=== PATIENT | male | born 1950 | race Caucasian/White ===

== ENCOUNTER 2020-06-17 09:17 | Inpatient (IN) | payer OTHER, MEDICARE ==
[2020-06-17 09:50] LABS: Absolute Lymphocytes (CBC) 1.1 K/uL (0.7-4.9); Basophils % 0.7 % (0-1.3); Hematocrit 34.6 % (39.6-49.0); Lymphocytes % 10.8 % (15.3-44.8); MPV 8.5 fL (7.6-11.3); RBC Red Blood Cell Count 3.38 M/uL (4.33-5.43)
[2020-06-17 09:51] LABS: Protime INR 1.1
[2020-06-17] MEDS ORDERED: NA CHLORIDE 0.9% 1,000 ML ONE ×2 (09:52→11:46)
[2020-06-17 10:11] LABS: ALT/SGPT 26 U/L (12-78); AST/SGOT 19 U/L (15-37); Albumin 2.9 g/dL (3.4-5.0); Alkaline Phosphatase 118 U/L (45-117); BUN Blood Urea Nitrogen 70 mg/dL (7-18); Bicarbonate 21 mmol/L (21-32); Bilirubin Direct 0.1 mg/dL (0-0.2); Bilirubin Total 0.4 mg/dL (0.2-1.0); Glucose Level 219 mg/dL (74-106); Lipase 19 U/L (73-393); Magnesium 2.5 mg/dL (1.8-2.4); NT PRO-BNP 1659 pg/mL (<125); Potassium 3.9 mmol/L (3.5-5.1); Protein, Total 6.1 g/dL (6.4-8.2); Sodium Level 136 mmol/L (136-145); Troponin (Emerg Dept Use Only) < 0.02 ng/mL (0.0-0.045)
[2020-06-17] MEDS ORDERED: FAMOTIDINE 20 MG/2 ML VIAL IV ONE (10:38)
[2020-06-17] MEDS ORDERED: HYDROCORTISONE SUC 100 MG INJ ONE (10:38)
[2020-06-17] MEDS ORDERED: CEFTRIAXONE/SWI 1gm 1 GM/10 ML SYR ONE (10:38)
[2020-06-17] MEDS ORDERED: DOPAMINE/D5W 400 MG/250 ML BAG IV ONE (10:39)
[2020-06-17] MEDS ORDERED: WATER FOR INJ,STERILE 10 ML ONE (10:41)
--- NOTE | 2020-06-17 11:25 | RAD REPORT ---
EXAM DESCRIPTION: CT - Head Brain Wo Cont - 06/17/2020 11:01 am CLINICAL HISTORY: Dizziness;Syncope Headache, drowsiness COMPARISON: No comparisons TECHNIQUE: All CT scans are performed using dose optimization technique as appropriate and may inclu de automated exposure control or mA/KV adjustment according to patient size. FINDINGS: No intracranial hemorrhage, hydrocephalus or extra-axial fluid collection.Area of gliosis is present in the left frontal lobe.No areas of brain edema or evidence of midline shift. Chronic opacification right sphenoid sinus. The paranasal sinuses and mastoids are otherwise clear. L eft-sided craniotomy changes are present in the temporal region. IMPRESSION: No acute intracranial abnormality.
--- NOTE | 2020-06-17 11:29 | RAD REPORT ---
EXAM DESCRIPTION: CT - Chest Abd Pelvis Wo Con - 06/17/2020 11:00 am CLINICAL HISTORY: Chest and abdomen pain. hypotensive,guaiac pos;Abdominal distention;Dyspnea COMPARISON: No comparisons TECHNIQUE: A limited noncontrast study is performed. All CT scans are performed using dose optimization technique as appropriate and may include automated exposure control or mA/KV adjustment according to patient size. FINDINGS: Atelectasis is present in both lung bases, greater on the left.Small area of atelectasis i s also present posterior left upper lobe.Trace left pleural effusion.No intrathoracic adenopathy. Rig ht sided subclavian vein stent. No aggressive liver lesion or biliary dilatation. Spleen appears absent. Postsurgical changes are pre sent involving pancreas. Both adrenal glands are normal. Multiple bilateral renal calculi and renal c ysts are present. No hydronephrosis. No bowel obstruction, free air, free fluid or abscess. Normal appendix. Moderate retained stool is pr esent throughout the colon. No pathologic lymphadenopathy in the abdomen or pelvis. Lower lumbar spondylosis is present with disc bulging. IMPRESSION: Areas of linear opacities are present in both lung bases and posterior left upper lobe p robably atelectasis. Small areas of infiltrate or aspiration can have a similar appearance. Postsurgical changes are seen involving the pancreas and spleen is surgically absent. Bilateral renal calculi are present without hydronephrosis. Moderate stool is present throughout the colon.
--- NOTE | 2020-06-17 11:44 | EDPHYS ---
Physician Documentation [facility] Name: Castillo German Age: 69 yrs Sex: Male : 1950 Arrival Date: 06/17/2020 Time: 09:[address] Private MD: ED Physician Arnol Bianchi HPI: 06/17 09:34 This 69 yrs old Male presents to ER via Unassigned with complaints of Syncope.jason 09:34 weak, syncope, unresponsive, hypotensive. The patient has experienced syncope, became jason unresponsive. Onset: The symptoms/episode began/occurred just prior to arrival. Duration: This was a single episode, that lasted 15 minute(s). Context: the episode(s) was witnessed, by family. Onset: The symptoms/episode began/occurred this morning. Associated injury: The patient did not suffer any apparent associated injury. Associated signs and symptoms: The patient has no apparent associated signs or symptoms. Severity of symptoms: At their worst the symptoms were moderate in the emergency department the symptoms have improved. Historical: - Allergies: : No Known Allergies; rb1 - Home Meds: :21 zolpidem 10 mg Oral tab 1 tab once daily [Active]; atorvastatin 10 mg oral tab 1 tab rb1 once daily [Active]; pantoprazole 40 mg oral TbEC 1 tab once daily [Active]; glimepiride 2 mg Oral tab 1 tab once daily [Active]; tramadol 50 mg Oral tab 1 tab every 4 hours [Active]; allopurinol 100 mg Oral tab 1 tab once daily [Active]; topiramate 200 mg oral CSpX 1 cap twice a day [Active]; calcitriol 0.25 mcg oral cap 1 cap once daily [Active]; sevelamer carbonate 800 mg oral tab 1 tab 4/meals 3/snack [Active]; midrodine 2.5 mg 1 tab three times a day [Active]; Vitamin D3 1,000 unit oral tab daily [Active]; Vitamin B-12 1,000 mcg Oral tab daily [Active]; Vitamin C 1,000 mg Oral tab daily [Active]; stool softner [Active]; - PMHx: 09:21 Dialysis M-W-F; rb1 09:21 Brain tumor; Pancreatic cancer; Prostate; Melonoma; kidney stones; shingles; rb1 - PSHx: 09:21 knee replacement; whipple; fistula; rb1 - Immunization history:: Adult Immunizations. - Family history:: not pertinent. - Social history:: Smoking status: Patient denies any tobacco usage or history of. ROS: 09:34 Constitutional: Negative for fever, chills, and weight loss, Eyes: Negative for injury, jason pain, redness, and discharge, ENT: Negative for injury, pain, and discharge, Neck: Negative for injury, pain, and swelling, Cardiovascular: Negative for chest pain, palpitations, and edema, Respiratory: Negative for shortness of breath, cough, wheezing, and pleuritic chest pain, Abdomen/GI: Negative for abdominal pain, nausea, vomiting, diarrhea, and constipation, Back: Negative for injury and pain, : Negative for injury, bleeding, discharge, and swelling, MS/Extremity: Negative for injury and deformity, Skin: Negative for injury, rash, and discoloration, Psych: Negative for depression, anxiety, suicide ideation, homicidal ideation, and hallucinations, Allergy/Immunology: Negative for hives, rash, and allergies, Endocrine: Negative for neck swelling, polydipsia, polyuria, polyphagia, and marked weight changes. 09:34 Neuro: Positive for syncope, weakness. Exam: 09:37 Constitutional: This is a well developed, well nourished patient who is awake, alert, jason and in no acute distress. Head/Face: Normocephalic, atraumatic. Eyes: Pupils equal round and reactive to light, extra-ocular motions intact. Lids and lashes normal. Conjunctiva and sclera are non-icteric and not injected. Cornea within normal limits. Periorbital areas with no swelling, redness, or edema. ENT: Nares patent. No nasal discharge, no septal abnormalities noted. Tympanic membranes are normal and external auditory canals are clear. Oropharynx with no redness, swelling, or masses, exudates, or evidence of obstruction, uvula midline. Mucous membranes moist. Neck: Trachea midline, no thyromegaly or masses palpated, and no cervical lymphadenopathy. Supple, full range of motion without nuchal rigidity, or vertebral point tenderness. No Meningismus. Chest/axilla: Normal chest wall appearance and motion. Nontender with no deformity. No lesions are appreciated. Respiratory: Lungs have equal breath sounds bilaterally, clear to auscultation and percussion. No rales, rhonchi or wheezes noted. No increased work of breathing, no retractions or nasal flaring. Abdomen/GI: Soft, non-tender, with normal bowel sounds. No distension or tympany. No guarding or rebound. No evidence of tenderness throughout. Back: No spinal tenderness. No costovertebral tenderness. Full range of motion. Male : Normal genitalia with no discharge or lesions. Skin: Warm, dry with normal turgor. Normal color with no rashes, no lesions, and no evidence of cellulitis. MS/ Extremity: Pulses equal, no cyanosis. Neurovascular intact. Full, normal range of motion. Psych: Awake, alert, with orientation to person, place and time. Behavior, mood, and affect are within normal limits. 09:37 Cardiovascular: Rate: bradycardic, Rhythm: regular, Pulses: Pulses are 2+ in bilateral radial, brachial, femoral, popliteal, posterior tibial and and dorsalis pedis arteries.. Heart sounds: normal, Edema: is not appreciated, JVD: is noted bilaterally, to 2 cm. 09:37 Musculoskeletal/extremity: Extremities: all appear grossly normal, with no appreciated pain with palpation, ROM: no acute changes, Circulation is intact in all extremities. Sensation intact. Compartment Syndrome exam of affected extremity: is normal. DVT Exam: No signs of deep vein thrombosis. no pain, no swelling, no tenderness, negative Homans' sign noted on exam, no appreciated bluish discoloration, no erythema, no increased warmth. 09:37 Neuro: Orientation: is normal, appropriate for stated age, no acute changes, Mentation: is normal, appropriate for stated age, no acute changes, slow to respond, Memory: is normal, appropriate for stated age, no acute changes, Cranial nerves: grossly normal, is grossly normal based on the patient's age, no acute changes, Cerebellar function: is grossly normal, is grossly normal based on the patient's age, no acute changes, Motor: is normal, is grossly normal based on the patient's age, no acute changes, moves all fours, Sensation: is normal, no obvious gross deficits, appropriate no acute changes, Gait: not tested. Babinski testing is normal, seizure activity, is not displayed by the patient. 10:14 Abdomen/GI: Inspection: distension, Bowel sounds: normal, Palpation: abdomen is soft jason and non-tender, soft, nontender, Rectal exam: rectal tone normal, Stool: guaiac positive, small bright red blood present, Liver: no appreciated palpable abnormalities, Hernia: not appreciated. 10:16 ECG was reviewed by the Attending Physician. [facility] Vital Signs: 09:21 BP 71 / 45; Pulse 109; Resp 15; Temp 96.6(TE); Pulse Ox 100% on R/A; Weight 89.36 kg; rb1 Height 5 ft. 11 in. (180.34 cm); Pain 0/10; 10:20 BP 76 / 48; Pulse 55; Resp 13; Pulse Ox 99% ; Pain 0/10; rb1 10:59 BP 68 / 42; Pulse 59; Resp 16; Pulse Ox 97% on 4 lpm NC; Pain 0/10; rb1 11:03 BP 71 / 46; Pulse 61; Resp 13; Pulse Ox 94% on 4 lpm NC; Pain 0/10; rb1 11:18 BP 77 / 45; Pulse 66; Resp 12; Pulse Ox 96% on 4 lpm NC; Pain 0/10; rb1 12:00 BP 97 / 52; Pulse 71; Resp 13; Pulse Ox 99% on 4 lpm NC; Pain 0/10; rb1 12:18 BP 97 / 54; Pulse 70; Resp 12; Pulse Ox 96% on 4 lpm NC; Pain 0/10; rb1 13:00 BP 99 / 55; Pulse 74; Resp 14; Pulse Ox 100% on 4 lpm NC; rb1 13:25 BP 64 / 54; Pulse 71; Resp 17; Pulse Ox 99% on 4 lpm NC; rb1 13:55 BP 102 / 60; Pulse 80; Resp 19 S; Pulse Ox 98% on 4 lpm NC; ca1 14:08 ca1 14:35 BP 106 / 62; Pulse 72; Resp 15 S; Pulse Ox 100% on 2 lpm NC; ca1 14:55 BP 110 / 61; Pulse 73; Resp 15; Pulse Ox 100% on 2 lpm NC; ca1 09:21 Body Mass Index 27.48 (89.36 kg, 180.34 cm) rb1 10:59 Dopamine increased to 10 mcg/kg/min rb1 11:03 Dopamine increased to 15 mcg/kg/min rb1 11:18 Dopamine increased to 20 mcg/kg/min rb1 12:00 Dopamine at 20 mcg/kg/min rb1 13:00 Dopamine decreased to 15 mcg/kg/min per verbal order from Dr. Neely. 100% verbal rb1 read back. 13:25 Dopamine increased to 20 mcg/kg/min due to low BP. rb1 13:55 Dopamine at 20mcg/kg/min ca1 14:08 RT decreased O2 to 2LP, sats at 100% ca1 14:35 Dopamine at 20mcg/kg/min ca1 14:55 Dopamine \T\ 20 mcg/kg/min ca1 Procedures: 10:15 Central Line: the site was prepped with Betadine, in sterile fashion, a triple lumen jason catheter was inserted, in the right femoral vein, in 1 attempts. placement was verified, by blood return, the site was dressed with using sterile technique, the patient tolerated the procedure, well. MDM: 09:22 Patient medically screened. jason 09:36 Differential Diagnosis altered mental status, sepsis. Differential Diagnosis: cardiac jason arrhythmia, cerebrovascular accident, drug effect, GI bleed. Data reviewed: vital signs, nurses notes, lab test result(s), EKG, radiologic studies, CT scan, plain films. Data interpreted: cafeteria monitor: rate is 50 beats/min, Pulse oximetry: on room air is 96 %. Test interpretation: by ED physician or midlevel provider: ECG, plain radiologic studies. Counseling: I had a detailed discussion with the patient and/or guardian regarding: the historical points, exam findings, and any diagnostic results supporting the discharge/admit diagnosis, the presence of at least one elevated blood pressure reading (>120/80) during this emergency department visit, lab results, radiology results. 06/17 09:33 Order name: Basic Metabolic Panel; Complete Time: 11:06 [facility] 06/17 09:33 Order name: CBC with Diff; Complete Time: 10: [facility] 06/17 09:33 Order name: LFT's; Complete Time: 11: [facility] 06/17 09:33 Order name: Magnesium; Complete Time: 11:06 [facility] 06/17 09:33 Order name: NT PRO-BNP; Complete Time: 11:06 jason 06/17 09:33 Order name: PT-INR; Complete Time: 10:06 [facility] 06/17 09:33 Order name: Troponin (emerg Dept Use Only); Complete Time: 11:06 [facility] 06/17 09:33 Order name: Lipase; Complete Time: 11: [facility] 06/17 09:33 Order name: Blood Culture Adult (2) [facility] 06/17 09:33 Order name: Procalcitonin; Complete Time: 11:06 [facility] 06/17 09:33 Order name: Lactate; Complete Time: 11:06 [facility] 06/17 09:33 Order name: Urine Culture [facility] 06/17 09:40 Order name: D-Dimer; Complete Time: 10:06 [facility] 06/17 10:06 Order name: Ptt, Activated; Complete Time: 11:06 [facility] 06/17 09:33 Order name: XRAY Chest (1 view) [facility] 06/17 09:40 Order name: CT Head Brain wo Cont; Complete Time: 11:32 [facility] 06/17 10:11 Order name: Type And Screen; Complete Time: 11:06 [facility] 06/17 10:14 Order name: CT Chest Abdomen Pelvis W/O Contrast; Complete Time: 11:32 [facility] 06/17 10:26 Order name: Glucose, Ancillary Testing; Complete Time: 11:06 [facility] 06/17 10:59 Order name: ABO/RH no charge; Complete Time: 11:06 [facility] 06/17 11:43 Order name: INCENTIVE SPIROMETRY [facility] 06/17 14:10 Order name: Urine Dipstick--Ancillary (enter results) tn 06/17 14:53 Order name: Lactate Sepsis 2 HR Follow-up [facility] 06/17 14:53 Order name: Urine Dipstick-Ancillary [facility] 06/17 09:33 Order name: EKG; Complete Time: 09:34 [facility] 06/17 09:33 Order name: Cardiac monitoring; Complete Time: 09:42 [facility] 06/17 09:33 Order name: EKG - Nurse/Tech; Complete Time: 09:42 [facility] 06/17 09:33 Order name: IV Saline Lock; Complete Time: 10:26 [facility] 06/17 09:33 Order name: Labs collected and sent; Complete Time: 10:26 [facility] 06/17 09:33 Order name: O2 Per Protocol; Complete Time: 10:26 [facility] 06/17 09:33 Order name: O2 Sat Monitoring; Complete Time: 11:11 [facility] 06/17 09:33 Order name: Central Line Kit; Complete Time: 11:04 [facility] 06/17 09:33 Order name: Urine Dipstick-Ancillary (obtain specimen); Complete Time: 14:10 [facility] 06/17 13:14 Order name: CONS Physician Consult EDMS EC:16 Rate is 58 beats/min. Rhythm is regular. QRS [place] is Normal. OH interval is normal. QRS jason interval is normal. QT interval is prolonged at 510 msec. No Q waves. T waves are Normal. No ST changes noted. Clinical impression: Sinus bradycardia. Interpreted by me. Reviewed by me. Administered Medications: 09:45 Drug: NS 0.9% 1000 ml Route: IV; Rate: 125 ml/hr; Site: left antecubital; rb1 10:35 Drug: Dopamine drip 5 mcg/kg/min - (DOPamine 400 mg, D5W 250 ml) Route: IV; Rate: rb1 calculated rate; Site: right femoral; 10:59 Follow up: Rate change 10 calculated rate rb1 11:03 Follow up: Rate change 15 calculated rate rb1 11:18 Follow up: Rate change 20 calculated rate rb1 13:00 Follow up: Rate change 15 calculated rate rb1 13:25 Follow up: Rate change 20 calculated rate rb1 14:50 Follow up: Response: No adverse reaction; IV Status: Completed infusion ca1 10:40 Drug: Solu-CORTEF 100 mg Route: IVP; Site: right femoral; rb1 10:55 Follow up: Response: No adverse reaction rb1 10:40 Drug: Pepcid 20 mg Route: IVP; Site: right femoral; rb1 10:55 Follow up: Response: No adverse reaction rb1 11:05 Drug: Rocephin 1 grams Route: IV; Rate: per protocol; Site: right femoral; rb1 11:20 Follow up: Response: No adverse reaction; IV Status: Completed infusion rb1 11:36 Drug: NS 0.9% 500 ml Route: IV; Rate: bolus; Site: right femoral; rb1 12:05 Follow up: IV Status: Completed infusion rb1 13:10 Drug: vancoMYCIN 1 grams Route: IVPB; Infused Over: 2 hrs; Site: left antecubital; ca1 14:58 Follow up: Response: No adverse reaction; IV Status: Completed infusion ca1 Point of Care Testing: Blood Glucose: 10:01 Blood Glucose: 185 mg/dL; rb1 Ranges: Critical Glucose Levels:Adult <50 mg/dl or >400 mg/dl <40 mg/dl or >180 mg/dl Disposition: 06/17/20 12:31 Hospitalization ordered by Paul Simms for Inpatient Admission. Preliminary diagnosis are Syncope and collapse, Gastrointestinal hemorrhage, unspecified, Hypotension, End stage renal disease - ON HD M,W,FRI. - Bed requested for Intensive Care Unit. - Status is Inpatient Admission. ca1 - Condition is Fair. - Problem is new. - Symptoms have improved. Critical care time excluding procedures: 10:20 Critical care time: Bedside Care: 35 minutes, Consultation: 10 minutes. Total time: 45 ajson minutes Signatures: Dispatcher [employer] EDGema Jo RN RN dw Anderson, Corey, MD MD cha Barber, Rebecca, RN RN [place] Naty Bridges RN RN ca1 Corrections: (The following items were deleted from the chart) 11:44 11:43 06/17/2020 11:43 Transfer ordered to [facility]. Diagnosis is jason Syncope and collapse; Gastrointestinal hemorrhage, unspecified; Hypotension; Weakness. Reason for transfer: Higher level of care. Accepting physician is [facility] [place] [place] [facility]. Condition is Serious. Problem is new. Symptoms have improved. [facility] 12:29 11:44 06/17/2020 11:43 Transfer ordered to [facility]. Diagnosis is jason Syncope and collapse; Gastrointestinal hemorrhage, unspecified; Hypotension; Weakness; End stage renal disease - on HD M,W,FRI. Reason for transfer: Higher level of care. Accepting physician is [facility] [place] [place] [facility]. Condition is Serious. Problem is new. Symptoms have improved. jason 14:24 12:31 Hospitalization Ordered by Paul Simms MD for Inpatient Admission. Preliminary dw diagnosis is Syncope and collapse; Gastrointestinal hemorrhage, unspecified; Hypotension; End stage renal disease - ON HD M,W,FRI. Bed requested for Intensive Care Unit. Status is Inpatient Admission. Condition is Fair. Problem is new. Symptoms have improved. jason 15:41 14:24 06/17/2020 12:31 Hospitalization Ordered by Paul Simms MD for Inpatient ca1 Admission. Preliminary diagnosis is Syncope and collapse; Gastrointestinal hemorrhage, unspecified; Hypotension; End stage renal disease - ON HD M,W,FRI. Bed requested for Intensive Care Unit. Status is Inpatient Admission. Condition is Fair. Problem is new. Symptoms have improved. dw
--- NOTE | 2020-06-17 11:44 | ER ---
Nurse's Notes [facility] Name: Castillo German Age: 69 yrs Sex: Male : 1950 Arrival Date: 06/17/2020 Time: 09:[address] Private MD: Diagnosis: Syncope and collapse;Gastrointestinal hemorrhage, unspecified;Hypotension;End stage renal disease-ON HD , Presentation: 06/17 09:21 Chief complaint: EMS states: Pt. recently moved here from [place], was supposed to have rb1 dialysis on Thursday but missed it due to driving to [place]. Went for a walk and became AMS, was sat down, then he had a syncope episode and became unresponsive. EMS reports HR 50's, BP 60's/40's, they administered Atropine, NS 500 ml bolus, and Paced him for 1 minute. Upon arrival to the ED the pt. is A \T\ O x 4 but lethargic. Coronavirus screen: Proceed with normal triage. Ebola Screen: Patient negative for fever greater than or equal to 101.5 degrees Fahrenheit, and additional compatible Ebola Virus Disease symptoms. Risk Assessment: Do you want to hurt yourself or someone else? Patient reports no desire to harm self or others. Onset of symptoms was June 17, 2020 at 08:35. 09:21 Method Of Arrival: EMS: [facility] rb1 09:21 Acuity: SULLY 3 rb1 09:21 Initial Sepsis Screen: Does the patient meet any 2 criteria? Temp <36.0*C (96.8*F)) or rb1 > 38.3*C (100.9*F). Systolic BP < 90 mmHg. HR > 90 bpm. Yes Does the patient have a suspected source of infection? Yes: Other: syncope. Triage Assessment: 09:21 General: Appears in no apparent distress. Behavior is calm, cooperative. Pain: Denies rb1 pain. Neuro: Level of Consciousness is obeys commands, lethargic, Oriented to person, place, time, situation, Reports a syncopal episode. Cardiovascular: Capillary refill < 3 seconds. Respiratory: Airway is patent Respiratory effort is even, unlabored, Respiratory pattern is regular, symmetrical. GI: No signs and/or symptoms were reported involving the gastrointestinal system. : Reports Dialysis on , but missed it this past Thursday due to driving here from [place]. Is scheduled for dialysis on Thursday. Derm: Skin is pink, warm \T\ dry. Musculoskeletal: Range of motion: intact in all extremities. Historical: - Allergies: : No Known Allergies; rb1 - Home Meds: : zolpidem 10 mg Oral tab 1 tab once daily [Active]; atorvastatin 10 mg oral tab 1 tab rb1 once daily [Active]; pantoprazole 40 mg oral TbEC 1 tab once daily [Active]; glimepiride 2 mg Oral tab 1 tab once daily [Active]; tramadol 50 mg Oral tab 1 tab every 4 hours [Active]; allopurinol 100 mg Oral tab 1 tab once daily [Active]; topiramate 200 mg oral CSpX 1 cap twice a day [Active]; calcitriol 0.25 mcg oral cap 1 cap once daily [Active]; sevelamer carbonate 800 mg oral tab 1 tab 4/meals 3/snack [Active]; midrodine 2.5 mg 1 tab three times a day [Active]; Vitamin D3 1,000 unit oral tab daily [Active]; Vitamin B-12 1,000 mcg Oral tab daily [Active]; Vitamin C 1,000 mg Oral tab daily [Active]; stool softner [Active]; - PMHx: : Dialysis M-W-F; rb1 : Brain tumor; Pancreatic cancer; Prostate; Melonoma; kidney stones; shingles; rb1 - PSHx: : knee replacement; whipple; fistula; rb1 - Immunization history:: Adult Immunizations. - Family history:: not pertinent. - Social history:: Smoking status: Patient denies any tobacco usage or history of. Screenin:21 Abuse screen: Denies threats or abuse. Nutritional screening: No deficits noted. rb1 Tuberculosis screening: No symptoms or risk factors identified. Fall Risk No fall in past 12 months (0 pts). No secondary diagnosis (0 pts). IV access (20 points). Ambulatory Aid- None/Bed Rest/Nurse Assist (0 pts). Gait- Normal/Bed Rest/Wheelchair (0 pts) Mental Status- Oriented to own ability (0 pts). Total Felix Fall Scale indicates No Risk (0-24 pts). Assessment: General: See triage assessment. rb1 10:20 Reassessment: Patient appears in no apparent distress at this time. No changes from rb1 previously documented assessment. 11:20 Reassessment: Patient appears in no apparent distress at this time. Patient denies pain rb1 at this time. 12:20 Reassessment: Patient appears in no apparent distress at this time. Pt. is resting with rb1 eyes closed, respirations even, unlabored. 13:00 Reassessment: Received verbal order from Dr. Neely to wean the pt. off the Dopamine, rb1 keeping the MAP at 60. 100% verbal read back. 13:57 Reassessment: Patient appears in no apparent distress at this time. Patient and/or ca1 family updated on plan of care and expected duration. Pain level reassessed. Patient is alert, oriented x 3, equal unlabored respirations, skin warm/dry/pink. Neuro: Level of Consciousness is awake, alert, obeys commands, Oriented to person, place, time, situation. Cardiovascular: Heart tones S1 S2 present Capillary refill < 3 seconds Patient's skin is warm and dry. Rhythm is sinus rhythm. 14:55 Reassessment: Patient appears in no apparent distress at this time. Patient and/or ca1 family updated on plan of care and expected duration. Pain level reassessed. Patient is alert, oriented x 3, equal unlabored respirations, skin warm/dry/pink. Vital Signs: 09:21 BP 71 / 45; Pulse 109; Resp 15; Temp 96.6(TE); Pulse Ox 100% on R/A; Weight 89.36 kg; rb1 Height 5 ft. 11 in. (180.34 cm); Pain 0/10; 10:20 BP 76 / 48; Pulse 55; Resp 13; Pulse Ox 99% ; Pain 0/10; rb1 10:59 BP 68 / 42; Pulse 59; Resp 16; Pulse Ox 97% on 4 lpm NC; Pain 0/10; rb1 11:03 BP 71 / 46; Pulse 61; Resp 13; Pulse Ox 94% on 4 lpm NC; Pain 0/10; rb1 11:18 BP 77 / 45; Pulse 66; Resp 12; Pulse Ox 96% on 4 lpm NC; Pain 0/10; rb1 12:00 BP 97 / 52; Pulse 71; Resp 13; Pulse Ox 99% on 4 lpm NC; Pain 0/10; rb1 12:18 BP 97 / 54; Pulse 70; Resp 12; Pulse Ox 96% on 4 lpm NC; Pain 0/10; rb1 13:00 BP 99 / 55; Pulse 74; Resp 14; Pulse Ox 100% on 4 lpm NC; rb1 13:25 BP 64 / 54; Pulse 71; Resp 17; Pulse Ox 99% on 4 lpm NC; rb1 13:55 BP 102 / 60; Pulse 80; Resp 19 S; Pulse Ox 98% on 4 lpm NC; ca1 14:08 ca1 14:35 BP 106 / 62; Pulse 72; Resp 15 S; Pulse Ox 100% on 2 lpm NC; ca1 14:55 BP 110 / 61; Pulse 73; Resp 15; Pulse Ox 100% on 2 lpm NC; ca1 09:21 Body Mass Index 27.48 (89.36 kg, 180.34 cm) rb1 10:59 Dopamine increased to 10 mcg/kg/min rb1 11:03 Dopamine increased to 15 mcg/kg/min rb1 11:18 Dopamine increased to 20 mcg/kg/min rb1 12:00 Dopamine at 20 mcg/kg/min rb1 13:00 Dopamine decreased to 15 mcg/kg/min per verbal order from Dr. Neely. 100% verbal rb1 read back. 13:25 Dopamine increased to 20 mcg/kg/min due to low BP. rb1 13:55 Dopamine at 20mcg/kg/min ca1 14:08 RT decreased O2 to 2LP, sats at 100% ca1 14:35 Dopamine at 20mcg/kg/min ca1 14:55 Dopamine \T\ 20 mcg/kg/min ca1 ED Course: 09:21 Patient arrived in ED. ss 09:21 Arm band placed on right wrist. rb1 09:21 Patient has correct armband on for positive identification. Placed in gown. Bed in low rb1 position. Call light in reach. Side rails up X2. secured entrance monitor on. Pulse ox on. NIBP on. Warm blanket given. 09:21 Maintain EMS IV. Dressing intact. Good blood return noted. Site clean \T\ dry. Gauge \T\ rb 1 site: 20 G L AC. 09:22 Arnol Bianchi MD is Attending Physician. [facility] 09:33 Bella Baird, RN is Primary Nurse. rb1 10:26 XRAY Chest (1 view) In Process Unspecified. EDMS 11:00 CT Chest Abdomen Pelvis W/O Contrast In Process Unspecified. EDMS 11:01 CT Head Brain wo Cont In Process Unspecified. EDMS 11:39 Triage completed. rb1 12:30 Paul Simms MD is Hospitalizing Provider. [facility] 13:00 Report given to WENDY Alfonso. rb1 14:09 Straight cath inserted, using sterile technique, 16 Fr. Specimen obtained. Returned ca1 clear yellow urine. Patient tolerated well. Urine sent to lab. 14:22 Repeat lab(s) drawn. by wi, sent to lab. ca1 14:58 Patient admitted, IV remains in place. ca1 Administered Medications: 09:45 Drug: NS 0.9% 1000 ml Route: IV; Rate: 125 ml/hr; Site: left antecubital; rb1 10:35 Drug: Dopamine drip 5 mcg/kg/min - (DOPamine 400 mg, D5W 250 ml) Route: IV; Rate: rb1 calculated rate; Site: right femoral; 10:59 Follow up: Rate change 10 calculated rate rb1 11:03 Follow up: Rate change 15 calculated rate rb1 11:18 Follow up: Rate change 20 calculated rate rb1 13:00 Follow up: Rate change 15 calculated rate rb1 13:25 Follow up: Rate change 20 calculated rate rb1 14:50 Follow up: Response: No adverse reaction; IV Status: Completed infusion ca1 10:40 Drug: Solu-CORTEF 100 mg Route: IVP; Site: right femoral; rb1 10:55 Follow up: Response: No adverse reaction rb1 10:40 Drug: Pepcid 20 mg Route: IVP; Site: right femoral; rb1 10:55 Follow up: Response: No adverse reaction rb1 11:05 Drug: Rocephin 1 grams Route: IV; Rate: per protocol; Site: right femoral; rb1 11:20 Follow up: Response: No adverse reaction; IV Status: Completed infusion rb1 11:36 Drug: NS 0.9% 500 ml Route: IV; Rate: bolus; Site: right femoral; rb1 12:05 Follow up: IV Status: Completed infusion rb1 13:10 Drug: vancoMYCIN 1 grams Route: IVPB; Infused Over: 2 hrs; Site: left antecubital; ca1 14:58 Follow up: Response: No adverse reaction; IV Status: Completed infusion ca1 Point of Care Testing: Blood Glucose: 10:01 Blood Glucose: 185 mg/dL; rb1 Ranges: Output: 15:01 Urine: 30ml (Straight Cath); Total: 30ml. ca1 Outcome: 11:43 ER care complete, transfer ordered by . jason 12:31 Decision to Hospitalize by Provider. [facility] 14:59 Admitted to ICU accompanied by nurse, accompanied by tech, via stretcher, room 3, with ca1 oxygen, on monitor, with chart, Report called to WENDY Monroy 14:59 Condition: stable 14:59 Instructed on the need for admit. 15:41 Patient left the ED. ca1 Signatures: Dispatcher [employer] EDArnol Lord MD MD cha Smirch, Shelby, RN RN Bella Baird, WENDY RN rb1 Naty Bridges RN RN ca1 Corrections: (The following items were deleted from the chart) 12:43 10:59 BP 68 / 42; Pulse 59bpm; Resp 16bpm; Pulse Ox 97%; Pain 0/10; Dopamine increased rb1 to 10 mcg/kg/min; rb1
[2020-06-17] MEDS ORDERED: VANCOMYCIN/NS 1 gm 1 GM/250 ML BAG IVPB ONE (13:00)
[2020-06-17] MEDS ORDERED: ACETAMINOPHEN 500 MG TAB PO PRN (13:15)
--- NOTE | 2020-06-17 13:32 | P.HP ---
Certification for Inpatient With expected LOS: >2 Midnights Patient will require the following post-hospital care: None Practitioner: I am a practitioner with admitting privileges, knowledge of patient current condition, hospital course, and medical plan of care. Services: Services provided to patient in accordance with Admission requirements found in Title 42 Section 412.3 of the Code of Federal Regulations <Jorge Alberto Alcocer - Last Filed: 06/17/20 13:27> Patient History Date of Service: 06/17/20 Primary Care Provider: None Reason for admission: Syncope with hypotension History of Present Illness: 69-year-old male with a past medical history of end-stage renal disease on dialysis Thursday, history of pancreatic cancer and prostate cancer but completed treatment, type 2 diabetes mellitus, chronic hypotension who was brought to the emergency room via EMS with complaints of syncope and hypotension. Patient just relocated from [place], [place] yesterday to live with his son here in [facility]. Patient was walking with his son when he had a syncopal episode and passed out. EMS was called. On arrival EMS bolus the patient 500 mL and paced the patient for less than 1 min. On arrival to the emergency room patient was alert and oriented x3 but slightly lethargic. Patient missed his dialysis on Thursday due to relocating from [place] to here. States he has dialysis set up for Thursday. Patient has a history of chronic hypertension and takes midodrine 2.5 mg t.i.d. On arrival to the ED patient's blood pressure was noted to be low. Initial blood pressure was 71/45 with a pulse rate of 105. Patient had a central line placed and was started on dopamine which improved patient's blood pressure. Last reading blood pressure was 97/52 with a map of 66. Patient was also bolused 1 L IV fluids in the ED. Blood work done in the ED shows a creatinine level of 15 consistent with missing his dialysis last Thursday, the D-dimer of 529 and a lactic acid of 2.5 with a repeat pending. Patient states he is feeling better. He just arrived on Thursday to his son's house. 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 Denies any prior cardiac history. Patient will be admitted to the ICU for further evaluation. Home medications list reviewed: Yes - Past Medical/Surgical History Diabetic: Yes -: Pancreatic cancer- completed treatment -: Prostate cancer- completed treatment -: Benign brain tumor -: Diabetes mellitus -: History of chronic Hypotension -: End-stage renal disease on dialysis Thursday -: Melanoma -: Removal of melanoma tumor -: Removal of benign brain tumor -: Av graft for dialysis 2 years ago Psychosocial/ Personal History: Lives with son. Relocated here from [place] this week. . - Family History Family History: Reviewed- Non-Contributory - Social History Smoking Status: Never smoker Alcohol use: No CD- Drugs: No Caffeine use: No Place of Residence: Home <Jorge Alberto Alcocer - Last Filed: 06/17/20 13:27> Date of Service: 06/17/20 <Alex Neely - Last Filed: 06/17/20 14:23> Review of Systems General: As per HPI Eyes: Unremarkable ENT: Unremarkable Respiratory: Unremarkable Cardiovascular: Light Headedness Gastrointestinal: Unremarkable Genitourinary: Unremarkable Musculoskeletal: Unremarkable Integumentary: Unremarkable Neurological: Weakness <Jorge Alberto Alcocer - Last Filed: 06/17/20 13:27> Physical Examination - Vital Signs Temperature: 96.6 F Blood Pressure: 71/45 Pulse: 109 Respirations: 15 Pulse Ox (%): 100 (2L NC) - Physical Exam General: Alert, In no apparent distress, Oriented x3 HEENT: Atraumatic, Normocephalic, PERRLA Neck: Supple, Other (Trachea midline) Respiratory: Clear to auscultation bilaterally, Normal air movement Cardiovascular: No edema, Normal pulses, Regular rate/rhythm Capillary refill: <2 Seconds Gastrointestinal: Normal bowel sounds, Soft and benign, Non-distended Musculoskeletal: No swelling, No contractures, No erythema Integumentary: No rashes, No breakdown, No significant lesion, No ten derness/swelling Neurological: Normal speech, Normal strength at 5/5 x4 extr, Normal tone, Sensation intact Other Physical/Emotional Findings: Right arm AV graft for dialysis - Studies Laboratory Data (last 24 hrs) 06/17/20 10:20: APTT 24.3 06/17/20 09:33: PT 12.9 H, INR 1.10 06/17/20 09:33: WBC 9.8, Hgb 11.8 L, Hct 34.6 L, Plt Count 268 06/17/20 09:33: Sodium 136, Potassium 3.9, BUN 70 H, Creatinine 15.00 H*, Glucose 219 H, Magnesium 2.5 H, Total Bilirubin 0.4, AST 19, ALT 26, Alkaline Phosphatase 118 H, Lipase 19 L <Jorge Alberto Alcocer - Last Filed: 06/17/20 13:27> - Studies Laboratory Data (last 24 hrs) 06/17/20 10:20: APTT 24.3 06/17/20 09:33: PT 12.9 H, INR 1.10 06/17/20 09:33: WBC 9.8, Hgb 11.8 L, Hct 34.6 L, Plt Count 268 06/17/20 09:33: Sodium 136, Potassium 3.9, BUN 70 H, Creatinine 15.00 H*, Glucose 219 H, Magnesium 2.5 H, Total Bilirubin 0.4, AST 19, ALT 26, Alkaline Phosphatase 118 H, Lipase 19 L <Alex Neely - Last Filed: 06/17/20 14:23> Assessment and Plan - Plan Impression: Syncope complicated by a history of chronic hypotension: Type 2 diabetes mellitus: End-stage renal disease on dialysis Thursday and Thursday: History of pancreatic cancer, prostate cancer, melanoma removed and craniotomy to remove a benign brain tumor: Plan: Syncope complicated by a history of chronic hypotension: Patient has chronic hypotension and takes midodrine 2.5 mg t.i.d. in emergency room he was hypotensive with an initial blood pressure of 71/45 that is improved to 97/52 after central line placement and starting patient on a dopamine drip. Patient will be placed in the ICU and switched to a Levophed drip. Will resume midodrine as above. Will order echocardiogram and carotid Doppler. CT of the head with FINDINGS: No intracranial hemorrhage, hydrocephalus or extra-axial fluid collection.Area of gliosis is present in the left frontal lobe.No areas of brain edema or evidence of midline shift. Chronic opacification right sphenoid sinus. The paranasal sinuses and mastoids are otherwise clear. Left-sided craniotomy changes are present in the temporal region.IMPRESSION: No acute intracranial abnormality. CT chest abdomen pelvis with findings of areas of linear opacities are present in both lung bases and posterior left upper lobe probably atelectasis. Small areas of infiltrate or aspiration can have a similar appearance. Postsurgical changes are seen involving the pancreas and spleen is surgically absent. Bilateral renal calculi are present without hydronephrosis. Moderate stool is present throughout the colon. Will monitor vitals and adjust medications accordingly. Patient is alert and oriented x3. Will order ADA diet. Type 2 diabetes mellitus: Will order sliding scale insulin, Accu-Cheks a.c. HS. Will monitor blood glucose. End-stage renal disease on dialysis Thursday, Thursday and Thursday: Will consult Nephrology. Patient's creatinine level was 15 on arrival. Patient missed dialysis on Thursday. 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 Melanoma was removed successfully and patient is seen by his corrections cadet on a regular basis. Patient also underwent craniotomy to remove a brain tumor which was benign. Discharge Plan: Home Plan to discharge in: 72 Hours - Advance Directives Does patient have a Living Will: No Does patient have a Durable POA for Healthcare: No - Code Status/Comfort Care Code Status Assessed: Yes Time Spent Managing Pts Care (In Minutes): 70 <Jorge Alberto Alcocer - Last Filed: 06/17/20 13:27> Physician Review Additional Text: Patient interviewed by Sandoval apparently he had a sudden onset of blacked out no other preceding symptoms as missed dialysis this recently moved from [place] is at a history of pancreatic prostatic cancer was getting treatment for pancreatic cancer in [place] denies any fever or contact with anyone with polo virus agree changing him over to Levophed titrate to a map of 60 he has had some fluid boluses in the ER he is in urgent need of dialysis creatinine is 15 white count normal patient is on midodrine at home resume diet NPO meds minimally does interstitial changes on the CT scan of the chest demand show some renal calculi CT of the head is negative agree with ultrasound of the carotids blood cultures pending <Alex Neely - Last Filed: 06/17/20 14:23>
[2020-06-17] MEDS ORDERED: NA CHLORIDE 0.9% 1,000 ML IV SCH (14:00)
[2020-06-17 14:53] LABS: Urine Blood 1+ (NEG); Urine Glucose NEGATIVE (NEG); Urine Protein 1+ (NEG)
[2020-06-17] MEDS ORDERED: NOREPINEPHRINE 4 MG in D5W 250 ML IV PRN (15:04)
[2020-06-17] MEDS ORDERED: NOREPINEPHRINE 4mg/D5W 250mL 4 MG/250 ML BAG IV ONE (15:15)
[2020-06-17 16:02] VITALS: BMI 29.5
[2020-06-17] MEDS: INSULIN -REGULAR HUMAN 50 UNIT/0.5 ML ML SQ SCH ×2 (16:30→21:00)
[2020-06-17] MEDS ORDERED: ZOLPIDEM TARTRATE 10 MG TABLET PO PRN (16:53)
[2020-06-17] MEDS: MIDODRINE HCL 5 MG TABLET PO SCH ×2 (17:04→22:18)
[2020-06-17] MEDS: HEPARIN 5000 UNIT/ML 1 ML VIAL SQ SCH (17:19)
[2020-06-17] MEDS: SEVELAMER CARBONATE 800 MG TABLET PO SCH (17:31)
--- NOTE | 2020-06-17 20:21 | RAD REPORT ---
EXAM DESCRIPTION: - CP - 06/17/2020 8:04 pm CLINICAL HISTORY: syncope/hypotension Headache, drowsiness, syncope COMPARISON: <Comparisons> TECHNIQUE: Real-time sonographic evaluation of both carotid systems was performed. Doppler interroga tion was performed with waveform tracing bilaterally. FINDINGS: Normal high resistance waveforms are noted in both external carotid arteries. The common c arotid arteries and internal carotid arteries show normal low resistance waveforms. Mild focal hard plaque is seen right carotid bulb. Peak systolic and end diastolic velocity values an d the ICA/CCA ratios are in the non-hemodynamically significant range. Antegrade flow seen in both vertebral arteries. IMPRESSION: Mild focal hard plaque right carotid bulb. No evidence of a hemodynamically significant stenosis.
[2020-06-17] MEDS: TRAMADOL HCL 50 MG TAB PO PRN (22:53)
[2020-06-18] MEDS: HEPARIN 5000 UNIT/ML 1 ML VIAL SQ SCH ×3 (01:51→16:54)
--- NOTE | 2020-06-18 02:10 | CON ---
Date of Consultation: 06/17/2020 Additional Consulting Physician: Nurse practitionerJorge Alberto. Reason For Consultation: Elevated BUN and creatinine, electrolyte imbalance. History Of Present Illness: This is a pleasant 69-year-old gentleman with significant past medical h istory of diabetes, complicated with neuropathy and nephropathy, pancreatic cancer status post treatm ent, prostate cancer status post treatment, brain tumor, end-stage renal disease on hemodialysis for the last 2 years, Thursday, Thursday, Thursday through right arm AV fistula, melanoma, benign brain tumo r. The patient came to the hospital as he moved from [place], missed his Thursday dialysis. The patie nt supposed to restart dialysis on Thursday. While he was walking with his family, the patient had syn copal episode. For that reason, brought to the emergency room. In the emergency room, found to have hypotensive, blood pressure systolic around 97. The patient received IV fluid and admitted. Labs s how elevation of BUN and creatinine. For that reason, we have been consulted. As I mentioned, the p atient missed Thursday dialysis. The patient denied any chest pain, any nausea, any vomiting. Past Medical History: 1.Pancreatic cancer. 2.Prostate cancer. 3.Benign brain tumor. 4.Diabetes complicated with neuropathy and nephropathy. 5.End-stage renal disease, on hemodialysis, Thursday, Thursday, Thursday through right arm AV fistula a [facility]. 6.Hypotension, on midodrine. 7.Melanoma. Family History: Positive for hypertension. Social History: Denies smoking. Denies drinking. Denies drug abuse. Review of Systems: Head and Neck: No red eye. No ear pain. GI: No nausea. No vomiting. : No polyuria. No dysuria. No hematuria. Roofer Metal: Not applicable. Respiratory: No shortness of breath. Cardiovascular: He has syncope. Musculoskeletal: No joint pain. Neurologic: He has syncopal and fall. Physical Examination: Vital Signs: When I saw the patient, blood pressure 95/70, pulse of 88. Chest: Clear to auscultation. Heart: S1, S2. Systolic murmur. Abdomen: Soft, nontender. Extremities: Trace edema. Neurologic: Alert. Moving 4 extremities without any focality. Laboratory Data: WBC 9.8, H and H 11.8/34.6. Sodium 136, potassium 3.9, bicarb 21, BUN 70, creatini ne 15, calcium of 8, magnesium 2.5. Procalcitonin 0.4. Urinalysis negative for infection. Current Medications: The patient is on dobutamine, vancomycin, heparin, Ambien. Assessment And Plan: 1.End-stage renal disease, missed dialysis, normal volume with severe elevation in BUN and creatinin e. No significant uremic symptoms. Currently, blood pressure on the lower side. I am going to [facility] for [facility] tomorrow. Hopefully, blood pressure is being more stabilized and we will monitor th e patient. 2.The patient is going to be dialyzed on low temperature, low blood flow to avoid having any hypoten alphonso. 3.Hypertension, currently low blood pressure. We will start the patient on midodrine. 4.Anemia of chronic kidney disease. No need for BYRON. 5.Secondary hyperparathyroid. Continue binder. 6.Electrolyte imbalance secondary to missing dialysis. Going to be corrected with dialysis. 7.Diabetes as by primary. Thank you, Mr. Azul, for allowing us to participate in the care of your patient. DAE/CANDY Voice ID: [id number] Report ID: [id number]
[2020-06-18] MEDS: TRAMADOL HCL 50 MG TAB PO PRN ×4 (03:44→21:19)
[2020-06-18 05:29] LABS: Absolute Lymphocytes (CBC) 1.4 K/uL (0.7-4.9); Basophils % 0.7 % (0-1.3); Hematocrit 34.9 % (39.6-49.0); Lymphocytes % 14.7 % (15.3-44.8); MPV 8.6 fL (7.6-11.3)
[2020-06-18 05:45] LABS: Albumin 2.8 g/dL (3.4-5.0); Bilirubin Total 0.4 mg/dL (0.2-1.0); Potassium 4.2 mmol/L (3.5-5.1); Protein, Total 6.1 g/dL (6.4-8.2)
[2020-06-18] MEDS: INSULIN -REGULAR HUMAN 50 UNIT/0.5 ML ML SQ SCH ×4 (07:30→21:00)
[2020-06-18] MEDS: MIDODRINE HCL 5 MG TABLET PO SCH ×3 (08:00→16:55)
[2020-06-18] MEDS: SEVELAMER CARBONATE 800 MG TABLET PO SCH ×3 (08:00→16:54)
[2020-06-18] MEDS ORDERED: dexAMETHasone 4 MG/ML VIAL IV ONE (08:35)
[2020-06-18] MEDS ORDERED: CEFEPIME 1 GM/VIAL IV SCH (09:00)
[2020-06-18] MEDS ORDERED: GABAPENTIN 100 MG CAP PO ONE (09:01)
[2020-06-18] MEDS: CEFEPIME/SWI 1gm 10 ML IV SCH (09:51)
--- NOTE | 2020-06-18 11:06 | P.PN ---
Subjective Date of Service: 06/18/20 Primary Care Provider: None Chief Complaint: Syncope with hypotension Subjective: No new changes, Improving Review of Systems 10-point ROS is otherwise unremarkable Physical Examination - Vital Signs Temperature: 98.4 F Blood Pressure: 111/52 Pulse: 57 Respirations: 12 Pulse Ox (%): 98 - Physical Exam General: Alert, In no apparent distress, Obese HEENT: Atraumatic, Normocephalic Neck: Supple, 2+ carotid pulse no bruit Respiratory: Clear to auscultation bilaterally, Normal air movement Cardiovascular: Normal pulses, Regular rate/rhythm Capillary refill: <2 Seconds Gastrointestinal: Soft and benign, W/out hepatosplenomegaly Musculoskeletal: No clubbing, No swelling Integumentary: No rashes Neurological: Normal speech, Normal strength at 5/5 x4 extr Lymphatics: No axilla or inguinal lymphadenopathy Other Physical/Emotional Findings: Right arm AV graft for dialysis Assessment & Plan - Problems (Diagnosis) (1) Hypotension Current Visit: Yes Status: Acute Physician Review Additional Text: Syncope complicated by a history of chronic hypotension: Type 2 diabetes mellitus: End-stage renal disease on dialysis Thursday and Thursday: History of pancreatic cancer, prostate cancer, melanoma removed and 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 HS. Will monitor blood glucose. End-stage renal disease on dialysis Thursday, Thursday and Thursday: Consulted Nephrology. 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 Melanoma was removed successfully and patient is seen by his merchandising professor on a regular basis. Patient also underwent craniotomy to remove a brain tumor which was benign. Disposition : Possible Dc home once more stable Time Spent Managing Pts Care (In Minutes): 45
[2020-06-18] MEDS ORDERED: HEPARIN 500 UNIT/5 ML SYR IV ONE ×2 (12:10→12:17)
--- NOTE | 2020-06-18 12:24 | ECHO ---
HEIGHT: 5 ft 11 in WEIGHT: 212 lb 0 oz DATE OF STUDY: 06/18/[address]: Jorge Alberto Alcocer 2-DIMENSIONAL: YES M.MODE: YES DOPPLER: YES COLOR FLOW: YES TDS: NO PORTABLE: YES DEFINITY: NO BUBBLE STUDY: NO DIAGNOSIS: SYNCOPE/ HYPOTENSION CARDIAC HISTORY: CATHERIZATION: NO SURGERY: NO PROSTHETIC VALVE: NO PACEMAKER: NO MEASUREMENTS (cm) DIASTOLIC (NORMALS) SYSTOLIC (NORMALS) IVSd 1.2 (0.6-1.2) LA Diam 3.4 (1.9-4.0) LVEF 60% LVIDd 5.2 (3.5-5.7) LVIDs 3.5 (2.0-3.5) %FS 32% LVPWd 1.4 (0.6-1.2) Ao Diam 3.2 (2.0-3.7) 2 DIMENSIONAL ASSESSMENT: RIGHT ATRIUM: NORMAL LEFT ATRIUM: NORMAL RIGHT VENTRICLE: NORMAL LEFT VENTRICLE: NORMAL TRICUSPID VALVE: MITRAL VALVE: NORMAL PULMONIC VALVE: NORMAL AORTIC VALVE: NORMAL PERICARDIAL EFFUSION: NONE AORTIC ROOT: NORMAL LEFT VENTRICULAR WALL MOTION: NORMAL. DOPPLER/COLOR FLOW: MILD TRICUSPID REGURGITATION. COMMENTS: NORMAL LEFT VENTRICULAR EJECTION FRACTION 55-60%. NORMAL WALL MOTION ABNORMALITY. NORMAL DIASTOLIC FUNCTION. MILD TRICUSPID REGURGITATION. TECHNOLOGIST: ROMINA ALVARADO
[2020-06-18] MEDS ORDERED: TRAMADOL HCL 50 MG TAB PO PRN (13:35)
[2020-06-18] MEDS: TOPIRAMATE 100 MG TAB PO SCH (13:38)
[2020-06-18] MEDS ORDERED: SEVELAMER CARBONATE 800 MG TABLET PO SCH (17:00)
[2020-06-18] MEDS ORDERED: HEPARIN 5000 UNIT/ML 1 ML VIAL ONE (20:26)
[2020-06-18] MEDS ORDERED: ATORVASTATIN 20 MG TAB ONE (20:27)
[2020-06-18] MEDS ORDERED: ZOLPIDEM TARTRATE 5 MG TABLET ONE (20:27)
[2020-06-18] MEDS ORDERED: ZOLPIDEM TARTRATE 10 MG TABLET PO SCH (21:00)
[2020-06-18] MEDS ORDERED: ATORVASTATIN 10 MG TAB PO SCH (21:00)
[2020-06-19] MEDS: TRAMADOL HCL 50 MG TAB PO PRN ×2 (01:50→08:31)
[2020-06-19] MEDS: HEPARIN 5000 UNIT/ML 1 ML VIAL SQ SCH ×2 (01:50→09:00)
--- NOTE | 2020-06-19 02:30 | PN ---
Date of Progress Note: 06/18/2020 Chief Complaint: Elevated BUN, creatinine, and electrolytes imbalance. Subjective: The patient is a 69-year-old man with past medical history significant for diabetes, gagandeep ropathy, nephropathy, pancreatic cancer, status post treatment for prostate cancer, status post treat ment for brain tumor. The patient has end-stage renal disease. He has been on dialysis at least for last 2 years and dialyzed on Thursday, Thursday, Thursday via the AV fistula of the right arm. The pat ient has benign brain tumor and melanoma. Review of Systems: Unobtainable. The patient is in ICU, cannot provide review of systems. Physical Examination: Lungs: Diminished breath sounds at bases. Heart: S1 and S2. No pericardial friction rub. Abdomen: Soft and benign. Extremities: Trace edema. Laboratory Data: Sodium 136, potassium 3.9, bicarbonate 21, BUN 70, creatinine 15, and magnesium 2.5 . Assessment: 1.End-stage renal disease. The patient was noncompliant with dialysis, he needs dialysis. He prese nted with volume overload, elevated BUN and creatinine. No uremic symptomatology clinically. The miguel garrett will resume dialysis in the hospital. 2.Anemia due to chronic kidney disease. At this point, the patient does not need BYRON. Monitor hemo globin level and resume BYRON when hemoglobin is below 10. 3.Diabetes mellitus. Continue insulin per Primary team. 4.Hypertension. Monitor blood pressure closely. EB/MODL Voice ID: [id number] Report ID: [id number]
[2020-06-19] MEDS: INSULIN -REGULAR HUMAN 50 UNIT/0.5 ML ML SQ SCH (07:30)
[2020-06-19 07:43] VITALS: O2SAT 99
[2020-06-19] MEDS ORDERED: PANTOPRAZOLE 40MG TABLET PO ONE (08:03)
[2020-06-19] MEDS ORDERED: HEPARIN 5000 UNIT/ML 1 ML VIAL ONE (08:03)
[2020-06-19] MEDS: SEVELAMER CARBONATE 800 MG TABLET PO SCH (08:30)
[2020-06-19] MEDS: MIDODRINE HCL 5 MG TABLET PO SCH (08:30)
[2020-06-19] MEDS: CEFEPIME/SWI 1gm 10 ML IV SCH (08:31)
[2020-06-19] MEDS: TOPIRAMATE 100 MG TAB PO SCH (08:31)
[2020-06-19] MEDS ORDERED: TOPIRAMATE 200 MG PO SCH (09:00)
[2020-06-19] MEDS ORDERED: PANTOPRAZOLE 40MG TABLET PO SCH (09:00)
[2020-06-19] MEDS ORDERED: CYANOCOBALAMIN 1,000 MCG TAB PO SCH (09:00)
[2020-06-19] MEDS ORDERED: VITAMIN D 1000 UNIT TAB PO SCH (09:00)
[2020-06-19] MEDS ORDERED: allopurinoL 100 MG TAB PO SCH (09:00)
[2020-06-19] MEDS ORDERED: ASCORBIC ACID 500 MG TABLET PO SCH (09:00)
[2020-06-19] MEDS ORDERED: DOCUSATE NA 100 MG CAP PO SCH (09:00)
[2020-06-19] MEDS ORDERED: CALCITROL 0.25 MCG CAP PO SCH (09:00)
[2020-06-19 09:10] LABS: Absolute Lymphocytes (CBC) 1.4 K/uL (0.7-4.9); Basophils % 0.7 % (0-1.3); Hematocrit 37.4 % (39.6-49.0); Lymphocytes % 16.8 % (15.3-44.8); MPV 8.5 fL (7.6-11.3); RBC Red Blood Cell Count 3.64 M/uL (4.33-5.43)
[2020-06-19 09:17] LABS: Albumin 3.1 g/dL (3.4-5.0); Bilirubin Total 0.4 mg/dL (0.2-1.0); Potassium 4.5 mmol/L (3.5-5.1); Protein, Total 6.9 g/dL (6.4-8.2)
[2020-06-19 09:56] LABS: Platelet Estimate ADEQ
[2020-06-19 09:57] LABS: Blood Morphology Comment NOT SEEN (NOT SEEN)
--- NOTE | 2020-06-19 10:45 | P.DS ---
Admission Date: 06/17/20 Discharge Date: 06/19/20 Primary Care Provider: None Disposition: ROUTINE DISCHARGE Discharge Condition: GOOD Reason for Admission: Syncope with hypotension - Problems (1) Hypotension Status: Acute Brief History of Present Illness: 69-year-old male with a past medical history of end-stage renal disease on dialysis Thursday, history of pancreatic cancer and prostate cancer but completed treatment, type 2 diabetes mellitus, chronic hypotension who was brought to the emergency room via EMS with complaints of syncope and hypotension. Patient just relocated from [place], [place] yesterday to live with his son here in [facility]. Patient was walking with his son when he had a syncopal episode and passed out. EMS was called. On arrival EMS bolus the patient 500 mL and paced the patient for less than 1 min. On arrival to the emergency room patient was alert and oriented x3 but slightly lethargic. Patient missed his dialysis on Thursday due to relocating from [place] to here. States he has dialysis set up for Thursday. Patient has a history of chronic hypertension and takes midodrine 2.5 mg t.i.d. On arrival to the ED patient's blood pressure was noted to be low. Initial blood pressure was 71/45 with a pulse rate of 105. Patient had a central line placed and was started on dopamine which improved patient's blood pressure. Last reading blood pressure was 97/52 with a map of 66. Patient was also bolused 1 L IV fluids in the ED. Blood work done in the ED shows a creatinine level of 15 consistent with missing his dialysis last Thursday, the D-dimer of 529 and a lactic acid of 2.5 with a repeat pending. Patient states he is feeling better. He just arrived on Thursday to his son's house. He has dialysis set up, but does not have a PCP, nursing clerk or senior controls engineer. Denies any prior cardiac history. Patient will be admitted to the ICU for further evaluation. 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 Cardiac enzymes were trended and was negative. Was also started empirically on antibiotics for sepsis. Cultures were negative. Levophed was titrated off. Midodrine was increased in dosage. 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 Melanoma was removed successfully and patient is seen by his color card maker on a regular basis. Patient also underwent craniotomy to remove a brain tumor which was benign. Patient responded well to the treatment , nephrology was consulted and he underwent dialysis, patient denies any chest pain or any of the other issues during the hospital stay. He wanted to go home and is being discharged home today in a stable condition with advice to follow up with PCP And nephrology in 1 week's time Vital Signs/Physical Exam: Temp Pulse Resp BP Pulse Ox 97.9 F 60 16 109/53 L 98 06/19/20 10:00 06/19/20 10:00 06/19/20 10:00 06/19/20 10:00 06/19/20 10:00 General: Alert, In no apparent distress HEENT: Atraumatic, Normocephalic Neck: Supple Respiratory: Clear to auscultation bilaterally, Normal air movement Cardiovascular: Normal pulses, Regular rate/rhythm Capillary refill: <2 Seconds Gastrointestinal: Soft and benign Integumentary: No rashes Neurological: Normal speech, Normal strength at 5/5 x4 extr Other Physical/Emotional Findings: Right arm AV graft for dialysis Laboratory Data at Discharge: WBC 8.6 K/uL (4.3-10.9) 06/19/20 08:46 Hgb 12.4 g/dL (13.6-17.9) L 06/19/20 08:46 Hct 37.4 % (39.6-49.0) L 06/19/20 08:46 Plt Count 296 K/uL (152-406) 06/19/20 08:46 PT 12.9 SECONDS (9.5-12.5) H 06/17/20 09:33 INR 1.10 06/17/20 09:33 APTT 24.3 SECONDS (24.3-36.9) 06/17/20 10:20 Sodium 139 mmol/L (136-145) 06/19/20 08:46 Potassium 4.5 mmol/L (3.5-5.1) 06/19/20 08:46 BUN 47 mg/dL (7-18) H D 06/19/20 08:46 Creatinine 12.30 mg/dL (0.55-1.3) H* D 06/19/20 08:46 Glucose 161 mg/dL (74-106) H 06/19/20 08:46 Magnesium 2.5 mg/dL (1.8-2.4) H 06/17/20 09:33 Total Bilirubin 0.4 mg/dL (0.2-1.0) 06/19/20 08:46 AST 8 U/L (15-37) L 06/19/20 08:46 ALT 19 U/L (12-78) 06/19/20 08:46 Alkaline Phosphatase 125 U/L (45-117) H 06/19/20 08:46 Lipase 19 U/L (73-393) L 06/17/20 09:33 Home Medications: Allopurinol 100 mg PO DAILY 06/17/20 Ascorbic Acid [Vitamin C] 1,000 mg PO DAILY 06/17/20 Atorvastatin Calcium [Lipitor*] 10 mg PO BEDTIME 06/17/20 Calcitriol [Rocaltrol] 0.25 mcg PO DAILY 06/17/20 Cholecalciferol (Vitamin D3) [Vitamin D3] 1,000 unit PO DAILY 06/17/20 Cyanocobalamin (Vitamin B-12) [Vitamin B-12] 1,000 mcg PO DAILY 06/17/20 Docusate [Colace Cap*] 100 mg PO DAILY 06/17/20 Glimepiride [Amaryl*] 2 mg PO DAILY 06/17/20 Pantoprazole [Protonix Tab] 40 mg PO DAILY 06/17/20 Sevelamer Carbonate [Renvela*] 4 tab PO TIDWM 06/17/20 Topiramate [Topamax] 200 mg PO DAILY 06/17/20 Tramadol HCl [Ultram] 50 mg PO Q4H PRN 06/17/20 Zolpidem Tartrate [Ambien] 10 mg PO BEDTIME 06/17/20 Gabapentin 100 mg PO BID #60 capsule 06/19/20 Midodrine HCl [Proamatine*] 5 mg PO TID* #90 tab 06/19/20 New Medications: Gabapentin 100 mg PO BID #60 capsule Midodrine HCl [Proamatine*] 5 mg PO TID* #90 tab Diet: Renal Activity: Ad lacey Followup: Yaneli Adrian MD [ACTIVE - CAN ADMIT] - 1 Day (Follow up per scheduled hemodialysis chair time) Time spent managing pt's care (in minutes): 42
[2020-06-19 12:03] VITALS: BP 112/74; TEMP 98.1
--- NOTE | 2020-06-26 10:58 | RAD REPORT ---
EXAM DESCRIPTION: RAD - Chest Single View - 06/25/2020 12:22 pm CLINICAL HISTORY: COUGH, syncope, unresponsive COMPARISON: None TECHNIQUE: AP portable chest image was obtained 06/25/2020 12:22 pm . FINDINGS: Lungs are clear. No focal consolidation or mass. There is mild prominence of the interstit ial pattern not further characterized on a baseline study. Resuscitation paddle overlies the upper ri ght chest. Vascular stent in the right upper quadrant is probably at the right subclavian SVC junctio n. Trachea is midline. Cardiac leads overlie the chest. No measurable pleural effusion and no pneumot horax. No acute bony abnormality seen. No acute aortic findings suspected. Exam was resubmitted for interpretation as the original dictation could not be retrieved. IMPRESSION: No focal mass or consolidation. No significant failure or volume overload. Mild prominence of the interstitial pattern on a baseline study. This could be baseline for the patie nt or indicate minimal edema or infiltrate.
== END 2020-06-19 12:15 | disposition home or self-care (01) | DRG 871 ==
LOC: ER 09:17 → ERHOLD 13:16 → 3RD-ICU 15:03 → ERHOLD 06-18 19:00
PROVIDERS: ADMIT Family Medicine; ATTEND Family Medicine
DX: A41.9 Sepsis, unspecified organism (principal); N18.6 End stage renal disease; R57.1 Hypovolemic shock; I12.0 Hypertensive chronic kidney disease with stage 5 chronic kidney disease or end stage renal disease; N25.81 Secondary hyperparathyroidism of renal origin; I95.9 Hypotension, unspecified; E87.70 Fluid overload, unspecified; E87.8 Other disorders of electrolyte and fluid balance, not elsewhere classified; E66.9 Obesity, unspecified; D63.1 Anemia in chronic kidney disease; E11.40 Type 2 diabetes mellitus with diabetic neuropathy, unspecified; E11.22 Type 2 diabetes mellitus with diabetic chronic kidney disease; R55 Syncope and collapse; Z85.46 Personal history of malignant neoplasm of prostate; Z85.07 Personal history of malignant neoplasm of pancreas; Z91.15 Patient's noncompliance with renal dialysis; Z79.84 Long term (current) use of oral hypoglycemic drugs; Z79.899 Other long term (current) drug therapy; Z68.29 Body mass index [BMI] 29.0-29.9, adult; Z99.2 Dependence on renal dialysis; Z11.59 Encounter for screening for other viral diseases; Z96.659 Presence of unspecified artificial knee joint
CPT/HCPCS: 36415; 51702; 70450; 71045; 71250; 74176; 80048; 80053; 80076; 80202; 81003; 82947; 83036; 83605; 83690; 83735; 83880; 84145; 84484; 85025; 85379; 85610; 85730; 86850; 86900; 86901; 87040; 87086; 87088; 90935; 93306; 93880; 96365; 96368; 96375; 99285; J0692; J0696; J1265; J1642; J1644; J1720; J3370; J7030; J7060; U0002

== ENCOUNTER 2021-10-31 11:40 | Inpatient (IN) | payer OTHER, MEDICARE ==
--- OUTSIDE RECORDS SUMMARY | 2021-10-31 11:43 | XMS REPORT | Continuity of Care Document ---
:1950 Author Organization [facility] t Address [facility] [place] [address] Care Team Providers Name Role Phone AGUSTIN SIMONS Primary Care Physician Unavailable Alexander CAMPOS Attending Clinician Unavailable ANDREW PLATA Attending Clinician Unavailable ALIREZA SIMONS Attending Clinician Unavailable LOBO Attending Clinician Unavailable SHILPA Attending Clinician Unavailable Shilpa FRANKLIN Attending Clinician COLLETTE Attending Clinician Unavailable EVELINE Attending Clinician Unavailable ATTILA LASSITER Attending Clinician Unavailable Doctor Unassigned, Name Attending Clinician Unavailable Alireza Simons MD Attending Clinician Alexander Campos MD Attending Clinician Sara LUGO Attending Clinician Unavailable Loreto MONROE Attending Clinician Unavailable Debra LONDON Attending Clinician Unavailable EM Attending Clinician Unavailable Alexander CAMPOS Admitting Clinician Unavailable ANDREW PLATA Admitting Clinician Unavailable Alexander Campos MD Admitting Clinician Payers Payer Name Policy Type Policy Number Effective Date Expiration Date S james MEDICARE PART A \\T\\ [id number] 2016 B 00:00:00 [facility] [id number] 2019 MEDICARE SUPPLEMENT 00:00:00 LEONARDA II [id number] 2019 00:00:00 MEDICARE A B [id number] 2016 00:00:00 LEONARDA HMO/POS/OPEN [id number] 2003 ACCESS 00:00:00 [facility] [id number] 2020 HEALTHCARE 00:00:00 MEDICARE PART A \\T\\ [id number] B - MEDICARE AARP MEDICARE [id number] SUPPLEMENT PLAN - [facility] OPEN ACCESS PLUS - [id number] [employer] Problems Condition Condition Condition Status Onset Resolution Last Treating Co mments Source Name Details Category Date Date Treatment Clinician Date 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 Active Univers dialysis dialysis 07-05 ity of 00:00: [place] 00 Medical Branch Malignant Malignant Disease Active Uni vers neoplasm neoplasm 07-05 ity of of head of [place] pancreas pancreas 00 Medica l Branch Prostate Prostate Disease Active Unive rs cancer cancer 07-05 ity of 00:00: [place] 00 Medical Branch Melanoma Melanoma Disease Active Unive rs 07-05 ity of 00:00: [place] 00 Medical Branch Type 2 Type 2 Disease Active Univers diabetes diabetes 07-05 ity of mellitus mellitus 00:00: [place] without without 00 Medical complicati complicati Br anch on, on, without without long-term long-term current current use of use of insulin insulin 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:00: [place] foot foot 00 Medical Branch Allergies, Adverse Reactions, Alerts Allergy Allergy Status Severity Reaction(s) Onset Inactive Treating Comm ents Source Name Type Date Date Clinician MORPHINE Allergy Active High N\\T\\V [facility] MORPHINE DRUG Active High N/V Univers INGREDI 2-10 ity of 00:00: [place] 00 Medical Branch Morphine Propensi Active Nausea Univer s ty to and/or 2-10 ity of adverse Vomiting 00:00: [place] reaction 00 Medical s to Branch drug NO KNOWN Drug Active Univers ALLERGIE Class ity of S [place] [facility] Social History Social Habit Start Date Stop Date Quantity Comments Source History SDTN University o f Alcohol Comment [place] [facility] ical Branch History [facility] University o f Alcohol Std [place] Medical Drinks Branch History SDTN University o f Alcohol Binge [place] [facility] al Branch Exposure to Not sure University of SARS-CoV-2 [place] [facility] (event) Branch Alcohol intake 2021-07-31 2021-07-31 Lifetime University of 00:00:00 00:00:00 non-drinker [facility] (finding) Branch Tobacco use and 2021-05-31 2021-05-31 Never used Universit y of exposure 00:00:00 00:00:00 [facility] History SDOH 2020-07-05 2020-07-05 1 University o f Alcohol Frequency 00:00:00 00:00:00 [facility] edical [place] Sex Ass[birth year] Universit y of 00:00:00 00:00:00 [facility] Smoking Status Start Date Stop Date Source Former smoker 2021-05-31 00:00:00 2021[facility] Medications Ordered Filled Start Stop Current Ordering Indication Dosage Frequency Signature Comments Components Source Medication Medication Date Date Medication? Clinician (SIG) Name Name folic Yes Take by Univers acid/vit B 07-31 mouth. ity of complex and 13:20: [place] C 02 Medical (DIALYVITE Branch ORAL) lactulose Yes Take by Univ ers (GENERLAC) 07-31 mouth ity of 10 gram/15 13:20: daily. [place] mL solution Medical Branch megestroL Yes 200mg Take 200 Uni vers 40 mg 9-01 mg by ity of tablet 13:20: mouth [place] 02 daily Medical Branch sevelamer Yes 800mg Take 800 Uni vers (RENAGEL) 9-01 mg by ity of 800 mg 13:20: mouth 3 [place] tablet 02 (three) Medical times Branch daily with meals. glimepiride Yes [id number] 1mg Take 1 Univers 1 mg tablet 6-11 tablet by ity of 00:00: mouth [place] 00 daily with Medical breakfast. Branch traMADoL 50 Yes [id number] 100mg Take 2 Uni vers mg tablet 5-14 tablets by ity of 00:00: mouth 3 [place] 00 (three) Medical times Branch daily. Indication s: chronic pain zolpidem 10 Yes [id number] 10mg Take 1 U nivers mg tablet 5-14 tablet by ity o f 00:00: mouth at [place] 00 bedtime. Medical Branch allopurinoL Yes [id number] 100mg Take 1 Univers 100 mg 5-14 tablet by ity of tablet 00:00: mouth [place] 00 daily. Medical Branch atorvastati Yes [id number] 10mg Take 1 Univers n 10 mg 5-14 tablet by ity of tablet 00:00: mouth at [place] 00 bedtime. Medical Branch topiramate Yes [id number] 200mg Take 1 Univers 200 mg 5-14 tablet by ity of tablet 00:00: mouth 2 [place] 00 (two) Medical times Branch daily. omeprazole Yes [id number] 40mg Take 1 Univers 40 mg 5-14 capsule by ity of capsule 00:00: mouth [place] 00 daily. Medical Branch midodrine 5 2019- Yes [id number] 5mg Take 1 Univers mg tablet 8-06 tablet by ity o f 00:00: mouth 2 00 (two) Medical times Branch daily. gabapentin Yes [id number] 100mg Take 1 Univers 100 mg 8-06 capsule by ity of capsule 00:00: mouth 2 [place] 00 (two) Medical times [place] daily. Omeprazole 2020- No [id number] 20mg Take 1 Univers 20 mg 8-06 07-31 tablet by ity of tablet 00:00: 00:00 mouth [place] 00 :00 daily. [facility] Branch Immunizations Ordered Filled Immunization Date Status Comments [facility] e Immunization Name Name SARS-COV-2 COVID-19 2021-03-07 Completed Unive rsity of PFIZER VACCINE 00:00:00 [facility] SARS-COV-2 COVID-19 2021-02-14 Completed Unive rsity of PFIZER VACCINE 00:00:00 [facility] Vital Signs Vital Name Observation Time Observation Value Comments Source HEIGHT 2021-08-21 10:32:00 180.3 cm WEIGHT 2021-08-21 10:32:00 73.936 kg HEIGHT 2021-07-10 12:32:00 180.3 cm WEIGHT 2021-07-10 12:32:00 73.936 kg HEIGHT 2021-07-09 12:12:00 180.3 cm WEIGHT 2021-07-09 12:12:00 77.111 kg Systolic blood 2021-07-31 18:18:00 128 mm[Hg] Univer sity of pressure [facility] Diastolic blood 2021-07-31 18:18:00 81 mm[Hg] Unive rsity of pressure [facility] Heart rate 2021-07-31 18:18:00 102 /min [facility] Respiratory rate 2021-07-31 18:18:00 19 /min [facility] Body height 2021-07-31 18:18:00 180.3 cm [facility] Body weight 2021-07-31 18:18:00 75.479 kg [facility] BMI 2021-07-31 18:18:00 23.21 kg/m2 [facility] Oxygen saturation in 2021-07-31 18:18:00 97 /min [facility] Arterial blood by [facility] Pulse oximetry Branch HEIGHT 2021-07-10 12:32:00 180.3 cm WEIGHT 2021-07-10 12:32:00 73.936 kg HEIGHT 2021-07-09 12:12:00 180.3 cm WEIGHT 2021-07-09 12:12:00 77.111 kg Procedures Procedure Date / Time Performed Performing Clinician [facility] HB ECG ROUTINE & 2021-07-31 18:21:03 Kelby Betts [facility] RHYTHM [facility] Encounters Start End Encounter Admission Attending Care Care Encounter Source Date/Time Date/Time Type Type Clinicians Facility Department ID 2021-09-30 Outpatient Tamia RIZVI [facility] [id number] Univers 01:24:32 BARB [facility] 2021-09-28 Emergency [facility] [id number] Univers 22:44:14 [facility] 2021-09-08 Outpatient EL EVELINE, SLE Surgery [id number] SLE 10:52:23 [facility] 2021-09-08 Outpatient PLATA, SLEH Surgery [id number] SLE 07:41:48 [facility] 2021-10-11 2021-10-11 Outpatient Tamia SIMONS [facility] [id number] Univers 09:00:00 09:00:00 [facility] [id number]-10-11 2021-10-11 Outpatient Tamia SIMONS [facility] [id number] Univers 09:00:00 09:00:00 AGUSTIN [facility] 2021-08-21 2021-08-21 Outpatient R [facility] [id number] Univers 09:15:00 09:15:00 [id number] [facility] 2021-08-21 2021-08-21 Outpatient R LOBO, [facility] [id number] Univers 09:15:00 09:15:00 LYUBOV [facility] 2021-08-21 2021-08-21 Outpatient EL SLE SLE [id number] SLEH 00:00:00 00:00:00 2021-08-20 2021-08-20 Outpatient R SIHLPA, [facility] [id number] Univers 14:00:00 14:00:00 [facility] [id number] [place] [facility] 2021-08-20 2021-08-20 Outpatient R SHILPA, [facility] [id number] Univers 08:30:00 08:30:00 KELBY [facility] [place] [facility] 2021-07-31 2021-07-31 Office Shilpa, [facility] [id number] Univers 13:04:45 13:46:07 Visit Kelby [place] [id number] [facility] [id number] [place] Profess[place] [phone] Oh dical [facility] Branch [facility] 2021-07-31 2021-07-31 Outpatient R SHILPA, [facility] [id number] Univers 13:20:00 13:20:00 CUAUHTEMOCOPAL [id number] [facility] [place] [facility] 2021-07-31 2021-07-31 Outpatient R SHILPA, [facility] [id number] Univers 13:20:00 13:20:00 KELBY [facility] [place] [facility] 2021-07-24 2021-07-24 Outpatient R VESELKA, [facility] [id number] Univers 08:00:00 08:00:00 AGUSTIN [id number] [facility] 2021-07-22 2021-07-22 Outpatient R [facility] [id number] Univers 14:15:00 14:15:00 [id number] [facility] 2021-07-22 2021-07-22 Outpatient R COLLETTE, [facility] [id number] Univers 14:15:00 14:15:00 [facility] 2021-07-10 2021-07-10 Outpatient LORENZA PLATA [facility] [id number] [facility] 11:35:47 11:35:47 PELON [facility]inson of Medicin e 2021-07-09 2021-07-09 Outpatient EL SLE SLE [id number] SLE 12:48:10 23:59:00 2021-07-06 2021-07-06 Outpatient R [facility] [id number] Univers 12:20:00 12:20:00 [id number] [facility] 2021-07-06 2021-07-06 Outpatient R [facility] [id number] Univers 12:20:00 12:20:00 [facility] 2021-06-28 2021-06-28 Outpatient LORENZA WILLIS [facility] [id number] [facility] 10:35:52 11:42:52 CHRISTOPHER stinson of Medicin e 2021-06-26 2021-06-26 Orders Doctor MAURICIO [id number] 00:00:00 00:00:00 Only Unassigned, MARISOL [id number] [place] [facility] [id number] [facility] 2021-06-11 2021-06-11 [facility] 1.2.840.114 [id number] 00:00:00 00:00:00 Agustin Flores [id number] Alireza Chacon [id number] Professio [id number] [address] 2021-06-05 2021-06-05 [facility] [id number] 07:59:00 10:30:00 Barb Tinsley [id number] [place] [id number] Surgical [id number] [place] 07 2021-06-05 2021-06-05 Surgery [facility] [id number] 09:35:00 10:09:00 Sandra [id number] [place] [id number] Surgical [id number] [place] 020 2021-06-05 2021-06-05 Orders Doctor MAURICIO 1.2.840.114 [id number] 00:00:00 00:00:00 Only Unassigned, MARISOL [id number] [place] [facility] [id number] [id number] 2021-06-04 2021-06-04 Outpatient R [facility] [id number] Univers 08:30:00 08:30:00 [id number] ity [facility] 2021-06-04 2021-06-04 Outpatient R BELKYS [facility] [id number] Univers 08:30:00 08:30:00 BARB [facility] o [facility] 2021-05-09 2021-05-09 Telephone [facility] 1.2.840.114 [id number] 00:00:00 00:00:00 [facility] [id number] [place] [id number] Professio [id number] nal [facility] [address] 2021-05-08 2021-05-08 Refill [facility] 1.2.840.114 [id number] 00:00:00 00:00:00 [facility] [id number] [place] [id number] Professio [id number] [place] [address] [address] 2021-05-06 2021-05-06 Telephone [facility] 1.2.840.114 [id number] 00:00:00 00:00:00 [facility] [id number] [place] [id number] Professio [id number] nal [facility] [address] 2021-04-12 2021-04-12 Office [facility] 1.2.840.114 [id number] 13:17:15 13:32:15 Visit [facility] [id number] [place] [id number] Professio [id number] [place] [address] [address] 2021-04-12 2021-04-12 Outpatient R KRISTYN [facility] [id number] Univers 13:30:00 13:30:00 AGUSTIN [id number] [facility] 2021-04-12 2021-04-12 Outpatient R KRISTYN [facility] [id number] Univers 13:30:00 13:30:00 AGUSTIN [facility] 2021-03-07 2021-03-07 Outpatient [facility] [id number] Univers 14:20:00 14:20:00 [facility] 2021-02-14 2021-02-14 Outpatient R BRITTNEY, [facility] [id number] Univers 14:20:00 14:20:00 ELZA [facility] 2021-01-23 2021-01-23 Outpatient R KRISTYN [facility] [id number] Univers 08:15:00 08:15:00 AGUSTIN [id number] [facility] 2021-01-23 2021-01-23 [facility] [id number] Univers 08:15:00 08:15:00 AGUSTIN [facility] 2021-01-09 2021-01-09 Outpatient R FER [facility] [id number] Univers 08:00:00 08:00:00 CHARLY [facility] 2020-12-12 2020-12-12 Outpatient R [facility] [id number] Univers 16:40:00 16:40:00 [id number] [facility] 2020-12-12 2020-12-12 [facility] [id number] Univers 16:40:00 16:40:00 STEPHY pena o f [facility] 2020-11-01 2020-11-01 Outpatient R [facility] [id number] Univers 18:00:00 18:00:00 [facility] 2020-11-01 2020-11-01 [facility] [id number] Univers 18:00:00 18:00:00 STEPHY janey o f [facility] 2020-09-20 2020-09-20 [facility] [id number] Univers 11:30:00 11:30:00 SASHA pena of [facility] Results Test Description Test Time Test Comments Results Result Sour e Comments TISSUE EXAM 2021-07-12 Surgical Pathology Report 08:34:00 Case: [id number] Authorizing Provider: Pelon Plata MD Collected: 07/10/2021 04:35 PM Ordering Location: [facility] Endoscopy Received: 07/11/2021 08:29 AM Services Pathologist: Marlon Ware MD Specimens: A) - Antrum, gastric antrum biopsy B) - Gastric, gastric body lesser curve biopsy C) - Gastric, gastric body greater curvature biopsy D) - Gastric, gastric fundus biopsy A. 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 STOMACH, BODY, LESSER CURVATURE, BIOPSY: - ACTIVE CHRONIC HELICOBACTER PYLORI GASTRITIS - NEGATIVE FOR INTESTINAL METAPLASIA, DYSPLASIA, MALIGNANCYC. STOMACH, BODY, GREATER CURVATURE, BIOPSY: - ACTIVE CHRONIC HELICOBACTER PYLORI GASTRITIS - NEGATIVE FOR INTESTINAL METAPLASIA, DYSPLASIA, MALIGNANCYD. STOMACH, FUNDUS, BIOPSY: - ACTIVE CHRONIC HELICOBACTER PYLORI GASTRITIS - NEGATIVE FOR INTESTINAL METAPLASIA, DYSPLASIA, MALIGNANCY Signing Pathologist Direct Phone Line: [phone] y signed by Marlon Ware MD on 07/12/2021 at 8:34 AMA-D. Warthin-starry stain is examined.[id number] lignant neoplasm of body of stomachA. Antrum; B. Gastric; C. Gastric; D. GastricA. Received in formalin labeled with the patient's name, medical record number and "antrum" are four delarosa-pink tissue ranging from 0.3 to 0.5 cm in greatest dimension. The specimen is filtered and submitted in toto in cassette A1. B. Received in formalin labeled with the patient's name, medical record number and "gastric" are multiple delarosa-pink tissues ranging from 0.1 to 0.5 cm in greatest dimension. The specimen is filtered and submitted in toto in cassette B1. C. Received in formalin labeled with the patient's name, medical record number and "gastric" are multiple pale white tissues ranging from 0.1 to 0.6 cm in greatest dimension. The specimen is filtered and submitted in toto in cassette C1. D. Received in formalin labeled with the patient's name, medical record number and "gastric" are two delarosa tissues measuring 0.4 and 0.5 cm in greatest dimension. The specimen is filtered and submitted in toto in cassette D1. MJP/pl Performed.The interpretation of this case included the use of immunohistochemistry or special stains.Control Slides Examined: In-house known positive controls were evaluated along with the test tissue. These control slides run alongside of the patients sample show appropriate staining. Internal positive and negative controls when available are evaluated Immunohistochemistry technical testing was performed at [facility], Pathology Laboratory where it was developed and its performance characteristics were determined. It has not been cleared or approved by the U.S. Food and Drug Administration. The FDA has determined that such clearance or approval is not necessary. The test is used for clinical purposes. It should not be regarded as investigational or for research. This laboratory is certified under the Clinical Laboratory Improvement Amendments of 1988 (CLIA-88) as qualified to perform high complexity clinical laboratory testing. POCT-POTASSIUM 2021-07-10 12:34:00 Test Item Value Reference Range Interpretation Comme nts POC-POTASSIUM (BEAKER) (test 4.5 meq/L 3.6-5.5 : TESTED AT [facility] [address] [facility] code = 1540) [facility], 770 30: Dining Room Maid/Techni willem ID = [id number] for BRENDA NAINA T POCT-GLUCOSE [id number] 12:32:00 Test Item Value Reference Range Interpretation Comments POC-GLUCOSE METER 95 mg/dL 70-110 : TESTED A T [facility] [address] ([employer]) (test code = CARLOS Cantrell [facility], 1538) [address]: Dining Room Maid/Techni willem ID = [id number] for PRASHANT ROSENBERG DANIEL
[2021-10-31] MEDS ORDERED: D50W 25 GM/50 ML SYRINGE IV ONE (12:17)
[2021-10-31 14:51] LABS: Absolute Lymphocytes (CBC) 0.7 K/uL (0.7-4.9); Basophils % 0.4 % (0-1.3); Hematocrit 38.2 % (39.6-49.0); Lymphocytes % 6.8 % (15.3-44.8); MPV 7.9 fL (7.6-11.3); RBC Red Blood Cell Count 3.79 M/uL (4.33-5.43)
--- NOTE | 2021-10-31 14:58 | RAD REPORT ---
EXAM DESCRIPTION: RAD - Chest Single View - 10/31/2021 2:53 pm CLINICAL HISTORY: weakness COMPARISON: Chest Single View dated 06/17/2020; Chest Abd Pelvis Wo Con dated 06/17/2020 FINDINGS: Lines: Right subclavian artery stent noted. Lungs: No evidence of edema or pneumonia. Pleural: No significant pleural effusions or pneumothorax. Cardiac: The heart size is within normal limits. Bones: No acute fractures. Other: IMPRESSION: No acute cardiopulmonary disease.
[2021-10-31 15:08] LABS: Protime INR 1.02
[2021-10-31 16:23] LABS: ALT/SGPT 18 U/L (12-78); AST/SGOT 12 U/L (15-37); Albumin 2.3 g/dL (3.4-5.0); Alkaline Phosphatase 166 U/L (45-117); BUN Blood Urea Nitrogen 34 mg/dL (7-18); Bicarbonate 29 mmol/L (21-32); Bilirubin Direct 0.1 mg/dL (0-0.2); Bilirubin Total 0.3 mg/dL (0.2-1.0); Glucose Level 106 mg/dL (74-106); Magnesium 2.6 mg/dL (1.8-2.4); NT PRO-BNP 10146 pg/mL (<125); Potassium 4.5 mmol/L (3.5-5.1); Protein, Total 6.5 g/dL (6.4-8.2); Sodium Level 133 mmol/L (136-145); Troponin (Emerg Dept Use Only) < 0.02 ng/mL (0.0-0.045)
--- NOTE | 2021-10-31 16:47 | EDPHYS ---
Physician Documentation [facility] Name: Castillo German Age: 70 yrs Sex: Male : 1950 Arrival Date: 10/31/2021 Time: 11:42 Bed 15 Private MD: ED Physician Pablo Jordan HPI: 10/31 16:43 This 70 yrs old Male presents to ER via EMS with complaints of General Weakness. [facility] 16:43 10-year-old male with history of end-stage renal disease, diabetes mellitus the presents [facility] emerge department with complaints of generalized weakness which was not alleviated after his session for dialysis today. EMS reported a low blood glucose level. . Historical: - Allergies: 12:11 No Known Allergies; jl7 - Home Meds: 12:11 allopurinol 100 mg Oral tab 1 tab once daily [Active]; glimepiride 2 mg Oral tab 1 tab jl7 once daily [Active]; pantoprazole 40 mg Oral TbEC 1 tab once daily [Active]; topiramate 200 mg Oral CSpX 1 cap twice a day [Active]; - PMHx: 12:11 Dialysis M-W-F; Kidney stones; Melonoma; pancreatic cancer; Prostate; shingles; jl7 Diabetes mellitus; Hypertensive disorder; - Immunization history:: Adult Immunizations unknown. - Social history:: Smoking status: unknown. ROS: 16:43 Cardiovascular: Negative for chest pain, palpitations, and edema, Respiratory: Negative [facility] for shortness of breath, cough, wheezing, and pleuritic chest pain, Abdomen/GI: Negative for abdominal pain, nausea, vomiting, diarrhea, and constipation. 16:43 Constitutional: Positive for fatigue. 16:43 Neuro: Positive for weakness. 16:43 All other systems are negative. Exam: 16:43 Constitutional: This is a well developed, well nourished patient who is awake, alert, jmm and in no acute distress. Head/Face: atraumatic. Eyes: EOMI, no conjunctival erythema appreciated ENT: Moist Mucus Membranes Neck: Trachea midline, Supple Chest/axilla: Normal chest wall appearance and motion. Cardiovascular: Regular rate and rhythm. No edema appreciated Respiratory: Normal respirations, no respiratory distress appreciated Abdomen/GI: Non distended, soft Back: Normal ROM Skin: General appearance color normal MS/ Extremity: Moves all extremities, no obvious deformities appreciated, no edema noted to the lower extremities Neuro: Awake and alert, normal gait Psych: Behavior is normal, Mood is normal, Patient is cooperative and pleasant Vital Signs: 12:10 BP 129 / 70; Pulse 81; Resp 17; Temp 97.1; Pulse Ox 100% on R/A; Weight 83.91 kg; jl7 Height 6 ft. 0 in. (182.88 cm); Pain 0/10; 14:51 BP 142 / 86; Pulse 74; Resp 18; Temp 97.8(O); Pulse Ox 98% on R/A; Pain 0/10; jh6 19:45 BP 98 / 58; Pulse 72; Resp 18; Temp 98.1; Pulse Ox 98% on R/A; mr2 21:00 BP 94 / 52; Pulse 100; Resp 19; Temp 98.2; Pulse Ox 98% on R/A; mr2 23:45 BP 60 / 45 (man/); bb 12:10 Body Mass Index 25.09 (83.91 kg, 182.88 cm) [facility] Procedures: 23:24 Central Line: the site was prepped with Betadine, in sterile fashion, a triple lumen jr8 catheter was inserted, in the right femoral vein, in 1 attempts. placement was verified, by blood return, the site was dressed with 4X4s, Tegaderm, foam tape, using sterile technique, the patient tolerated the procedure, well. MDM: 14:33 Patient medically screened. [facility] 16:44 Data reviewed: vital signs, nurses notes. Counseling: I had a detailed discussion with yoselyn the patient and/or guardian regarding: the historical points, exam findings, and any diagnostic results supporting the discharge/admit diagnosis, lab results, the need for further work-up and treatment in the hospital. ED course: I discussed the patient with Dr. Burden whom accepted the patient for admission due to concerns for continue hyperglycemia due to long-acting sulfonylurea.. 10/31 13:16 Order name: Glucose, Ancillary Testing; Complete Time: 14:29 [facility] 10/31 13:25 Order name: Glucose, Ancillary Testing; Complete Time: 14:29 [facility] 10/31 14:34 Order name: Basic Metabolic Panel; Complete Time: 16:32 [facility] 10/31 14:34 Order name: CBC with Diff; Complete Time: 14:56 [facility] 12/ 14:34 Order name: LFT's; Complete Time: 16:32 [facility] 12/ 14:34 Order name: Magnesium; Complete Time: 16:32 [facility] 12/ 14:34 Order name: NT PRO-BNP; Complete Time: 16:32 [facility] 12/ 14:34 Order name: PT-INR; Complete Time: 15:26 [facility] 12/ 14:34 Order name: Troponin (emerg Dept Use Only); Complete Time: 16:32 [facility] 12/ 14:34 Order name: SARS-COV-2 RT PCR (Document "Date of Onset" if Symptomatic); Complete Time: [facility] 16:32 12 14:43 Order name: Glucose, Ancillary Testing; Complete Time: 14:46 [facility] 12/ 18:05 Order name: CBC with Automated Diff [facility] 10/31 18:05 Order name: CBC with Automated Diff [facility] 10/31 18:05 Order name: Comprehensive Metabolic Panel [facility] / 14:34 Order name: XRAY Chest (1 view); Complete Time: 15:04 [facility] 12/ 14:34 Order name: EKG; Complete Time: 14:35 [facility] 12/ 18:05 Order name: CONS Physician Consult [facility] / 18:05 Order name: Comprehensive Metabolic Panel [facility] / 18:10 Order name: Hemoglobin A1c [facility] / 20:23 Order name: Glucose, Ancillary Testing; Complete Time: 06:26 [facility] 12/ 21:26 Order name: Glucose, Ancillary Testing; Complete Time: 06:26 [facility] / 22:19 Order name: Glucose, Ancillary Testing; Complete Time: 06:26 [facility] 12/ 23:42 Order name: CBC with Automated Diff; Complete Time: 06:26 EDMS / 23:43 Order name: Protime (+INR); Complete Time: 06:26 EDMS 12/ 23:43 Order name: PTT, Activated Partial Thromb; Complete Time: 06:26 EDMS 12/ 00:00 Order name: Comprehensive Metabolic Panel; Complete Time: 06:26 EDMS 12/03 00:54 Order name: Type and Screen [facility] 11/01 02:27 Order name: Glucose, Ancillary Testing; Complete Time: 06:26 [facility] 10/31 14:34 Order name: Cardiac monitoring [facility] 10/31 14:34 Order name: EKG - Nurse/Tech [facility] 10/31 14:34 Order name: IV Saline Lock [facility] 10/31 14:34 Order name: Labs collected and sent [facility] 10/31 14:34 Order name: O2 Per Protocol [facility] 10/31 14:34 Order name: O2 Sat Monitoring [facility] 10/31 14:35 Order name: Urine Dipstick-Ancillary (obtain specimen) [facility] 10/31 15:10 Order name: Labs - recollect needed: recollect green top please; Complete Time: 18:59 em1 10/31 18:05 Order name: Renal EDMS Administered Medications: 12:25 Drug: D50W 50 ml Route: IVP; Site: left antecubital; jl7 Point of Care Testing: Blood Glucose: 12:29 Blood Glucose: 42 mg/dL; jl7 13:13 Blood Glucose: 86 mg/dL; jl7 Ranges: Critical Glucose Levels:Adult <50 mg/dl or >400 mg/dl <40 mg/dl or >180 mg/dl Disposition: 11/01 08:38 Co-signature as Attending Physician, Pablo Jordan MD I agree with the assessment and kdr plan of care. Disposition Summary: 10/31/21 16:46 Hospitalization Ordered Hospitalization Status: Observation [facility] Provider: Jennifer Burden Condition: Stable jm Problem: new jmm Symptoms: are unchanged jmm Bed/Room Type: Standard [facility] Location: [facility] ER HOLD(10/31/21 23:00) Room Assignment: ERHOLD-(10/31/21 23:00) Diagnosis - Other hypoglycemia jmm - Adverse reaction to sulfonylurea, unspecified [facility] Forms: - Medication Reconciliation Form [facility] - SBAR form [facility] Signatures: Dispatcher [employer] EDMS Brooke Ramos RN RN mw Rittger, Kevin, MD MD kdr Mickail, Joel, PA PA jmm Williams, Irene RN Rodríguez Sanders em1 Mitul Ramos PA PA jr8 Leal, Jahala, RN RN jl7 Edmond Bonner RN RN mr2 Corrections: (The following items were deleted from the chart) 10/31 11:45 11:45 PMHx: BRAIN TUMOR; [facility] 19:35 16:46 [facility] 23:00 16:46 Telemetry/MedSurg (observation) [facility] 23:00 19:[address] [place] [address]
--- NOTE | 2021-10-31 16:47 | ER ---
Nurse's Notes [facility] Name: Castillo German Age: 70 yrs Sex: Male : 1950 Arrival Date: 10/31/2021 Time: 11:42 Bed 15 Private MD: Diagnosis: Other hypoglycemia;Adverse reaction to sulfonylurea, unspecified Presentation: 10/31 11:44 Chief complaint: EMS states: generalized weakness since this morning, had dialysis and iw still feeling weak after, VSS, BS=71. Coronavirus screen: At this time, the client does not indicate any symptoms associated with coronavirus-19. Ebola Screen: Patient negative for fever greater than or equal to 101.5 degrees Fahrenheit, and additional compatible Ebola Virus Disease symptoms Patient denies exposure to infectious person. Patient denies travel to an Ebola-affected area in the 21 days before illness onset. No symptoms or risks identified at this time. Initial Sepsis Screen: Does the patient meet any 2 criteria? No. Patient's initial sepsis screen is negative. Does the patient have a suspected source of infection? No. Patient's initial sepsis screen is negative. Risk Assessment: Do you want to hurt yourself or someone else? Patient reports no desire to harm self or others. Onset of symptoms was October 31, 2021. 11:44 Method Of Arrival: EMS: [facility] iw 11:44 Acuity: SULLY 3 iw 12:15 Acuity: SULLY 2 jl7 Triage Assessment: 19:00 General: Appears in no apparent distress. Behavior is calm, cooperative. mr2 Historical: - Allergies: 12:11 No Known Allergies; jl7 - Home Meds: 12:11 allopurinol 100 mg Oral tab 1 tab once daily [Active]; glimepiride 2 mg Oral tab 1 tab jl7 once daily [Active]; pantoprazole 40 mg Oral TbEC 1 tab once daily [Active]; topiramate 200 mg Oral CSpX 1 cap twice a day [Active]; - PMHx: 12:11 Dialysis M-W-F; Kidney stones; Melonoma; pancreatic cancer; Prostate; shingles; jl7 Diabetes mellitus; Hypertensive disorder; - Immunization history:: Adult Immunizations unknown. - Social history:: Smoking status: unknown. Screenin:49 Abuse screen: Denies threats or abuse. Nutritional screening: No deficits noted. jh6 Tuberculosis screening: No symptoms or risk factors identified. Fall Risk None identified. Assessment: 12:29 Reassessment: Pts FSBG 42, ERD notified, VO for 1 amp D5, pt medicated as ordered and jl7 provided with water, peanut butter and crackers. Pt placed in lobby in view of nurse. 13:15 Reassessment: Pt reports not wanting peanut butter, provided pt with Gatorade, sandwich jl7 and fruit cup. 14:40 Reassessment: Patient appears in no apparent distress at this time. Patient denies pain jh6 at this time. Patient states feeling better. Pt alert to self but not year. States that he took his diabetic meds this am but hasn't ate much today,.Pt states that he went to visit his spouse in the hospital and then wound up here and he doesn't know how.. Pain: Denies pain. 17:02 Reassessment: Patient and/or family updated on plan of care and expected duration. Pain jh6 level reassessed. Patient is alert, oriented x 3, equal unlabored respirations, skin warm/dry/pink. Patient states symptoms have improved. Pain: Denies pain. Vital Signs: 12:10 BP 129 / 70; Pulse 81; Resp 17; Temp 97.1; Pulse Ox 100% on R/A; Weight 83.91 kg; jl7 Height 6 ft. 0 in. (182.88 cm); Pain 0/10; 14:51 BP 142 / 86; Pulse 74; Resp 18; Temp 97.8(O); Pulse Ox 98% on R/A; Pain 0/10; jh6 19:45 BP 98 / 58; Pulse 72; Resp 18; Temp 98.1; Pulse Ox 98% on R/A; mr2 21:00 BP 94 / 52; Pulse 100; Resp 19; Temp 98.2; Pulse Ox 98% on R/A; mr2 23:45 BP 60 / 45 (man/); bb 12:10 Body Mass Index 25.09 (83.91 kg, 182.88 cm) jl7 ED Course: 11:42 Patient arrived in ED. kc5 11:45 Triage completed. iw 12:16 Arm band placed on. iw 12:30 Inserted saline lock: 20 gauge in left antecubital area, using aseptic technique. jl7 13:57 Mickail, Capo, PA is PHCP. [facility] 13:57 Pablo Jordan MD is Attending Physician. [facility] 14:29 Capo Eduardo PA is PHCP. [facility] 14:29 Pablo Jordan MD is Attending Physician. [facility] 14:39 Bisi Germain, RN is Primary Nurse. [facility] 14:50 Diet: Patient given snack. Patient given juice. Tolerated well pt not wanting peanut 6 butter and crackers but is willing to eat chocolate pudding and sprite. Pt tolerated well. . 14:53 XRAY Chest (1 view) In Process Unspecified. EDMS 16:45 Jennifer Burden MD is Hospitalizing Provider. [facility] 19:00 Patient has correct armband on for positive identification. Bed in low position. Side mr2 rails up X2. 20:02 No provider procedures requiring assistance completed. Patient admitted, IV remains in mr2 place. 23:20 initiated a transfer with Annetta Martinez from [facility]. [facility] 11/01 01:53 adminsitrative approval given by Annetta Martinez/ patient has been accepted to [address] ICU bed 214/ Dr. Ibrahim accepted the patient in transfer/ report to be called to [phone]. Administered Medications: 10/31 12:25 Drug: D50W 50 ml Route: IVP; Site: left antecubital; jl7 Point of Care Testing: Blood Glucose: 12:29 Blood Glucose: 42 mg/dL; jl7 13:13 Blood Glucose: 86 mg/dL; jl7 Ranges: Outcome: 16:46 Decision to Hospitalize by Provider. [facility] 20:03 Admitted to Med/surg mr2 20:03 Condition: stable 20:03 Instructed on the need for admit. 11/01 04:10 Patient left the ED. 2 Signatures: Dispatcher [employer] EDMS Capo Eduardo PA PA [facility] Keila Pratt RN WENDY bb Lisa Marin RN RN iw Leal, Jahala, RN RN jl7 Deanna Carpenter [facility] Edmond Bonner RN RN [facility] Bisi Germain RN RN 6 Luma Keenan 5 Corrections: (The following items were deleted from the chart) 10/31 11:45 11:45 PMHx: BRAIN TUMOR; [facility] iw 11/01 00:05 10/31 23:45 BP 60 / 45; bb bb
[2021-10-31] MEDS ORDERED: ONDANSETRON 4 MG/2 ML VIAL IV PRN (18:03)
[2021-10-31] MEDS ORDERED: ACETAMINOPHEN 500 MG TAB PO PRN (18:03)
[2021-10-31] MEDS ORDERED: MORPHINE 2 MG/ML SYR IV PRN (18:03)
[2021-10-31] MEDS ORDERED: D50W 25 GM/50 ML SYRINGE IV PRN (18:07)
--- NOTE | 2021-10-31 18:08 | P.HP ---
Certification for Inpatient Patient admitted to: Inpatient With expected LOS: >2 Midnights Patient will require the following post-hospital care: None Practitioner: I am a practitioner with admitting privileges, knowledge of patient current condition, hospital course, and medical plan of care. Services: Services provided to patient in accordance with Admission requirements found in Title 42 Section 412.3 of the Code of Federal Regulations Patient History Date of Service: 10/31/21 Reason for admission: hypoglycemia/ESRD Allergies No Known Allergies Allergy (Unverified 06/17/20 14:58) Home Medications: Allopurinol 100 mg PO DAILY 06/17/20 Ascorbic Acid [Vitamin C] 1,000 mg PO DAILY 06/17/20 Atorvastatin Calcium [Lipitor*] 10 mg PO BEDTIME 06/17/20 Cholecalciferol (Vitamin D3) [Vitamin D3] 1,000 unit PO DAILY 06/17/20 Cyanocobalamin (Vitamin B-12) [Vitamin B-12] 1,000 mcg PO DAILY 06/17/20 Docusate [Colace Cap*] 100 mg PO DAILY 06/17/20 Glimepiride [Amaryl*] 2 mg PO DAILY 06/17/20 Pantoprazole [Protonix Tab] 40 mg PO DAILY 06/17/20 Sevelamer Carbonate [Renvela*] 4 tab PO TIDWM 06/17/20 Topiramate [Topamax] 200 mg PO DAILY 06/17/20 Tramadol HCl [Ultram] 50 mg PO Q4H PRN 06/17/20 Zolpidem Tartrate [Ambien] 10 mg PO BEDTIME 06/17/20 calcitrioL [Rocaltrol] 0.25 mcg PO DAILY 06/17/20 Gabapentin 100 mg PO BID #60 capsule 06/19/20 Midodrine HCl [Proamatine*] 5 mg PO TID* #90 tab 06/19/20 - Past Medical/Surgical History Diabetic: Yes -: Pancreatic cancer- completed treatment -: Prostate cancer- completed treatment -: Benign brain tumor -: Diabetes mellitus -: History of chronic Hypotension -: End-stage renal disease on dialysis Thursday -: Melanoma-all over -: Shingles -: Kidney stones -: Removal of melanoma tumor -: Removal of benign brain tumor -: Av graft for dialysis 2 years ago -: Whipple -: Brain surgery from benign tumor -: Moris Knee surgery Psychosocial/ Personal History: Lives with son. Relocated here from [place] this week. . - Family History Mother Medical History: Heart disease, Hypertension Notes: NC - Social History Alcohol use: No CD- Drugs: No Caffeine use: No Review of Systems 10-point ROS is otherwise unremarkable Physical Examination - Physical Exam General: Alert, In no apparent distress Respiratory: Clear to auscultation bilaterally, Normal air movement Cardiovascular: Regular rate/rhythm, Normal S1 S2 Gastrointestinal: Normal bowel sounds, Soft and benign, Non-distended Musculoskeletal: No clubbing, No swelling, No contractures - Studies Laboratory Data (last 24 hrs) 10/31/21 15:51: Sodium 133 L, Potassium 4.5, BUN 34 H, Creatinine 4.89 H, Glucose 106, Magnesium 2.6 H, Total Bilirubin 0.3, AST 12 L, ALT 18, Alkaline Phosphatase 166 H 10/31/21 14:41: PT 11.7, INR 1.02 10/31/21 14:41: WBC 9.80, Hgb 12.6 L, Hct 38.2 L, Plt Count 324 Assessment & Plan - Problems (Diagnosis) (1) Hypoglycemia Current Visit: Yes Status: Acute (2) ESRD (end stage renal disease) Current Visit: Yes Status: Acute - Advance Directives Does patient have a Living Will: No Does patient have a Durable POA for Healthcare: No
[2021-10-31] MEDS ORDERED: D50W 50 ML IV ONE (20:17)
[2021-10-31] MEDS ORDERED: PANTOPRAZOLE 40 MG INJ IVP ONE (22:34)
[2021-10-31] MEDS ORDERED: SODIUM CHLORIDE 0.9% 10ML INJ IV PRN (22:34)
[2021-10-31] MEDS ORDERED: NA CHLORIDE 0.9% 1,000 ML ONE (22:42)
[2021-10-31] MEDS ORDERED: OCTREOTIDE ACETATE 100 MCG/ML IV ONE (22:45)
[2021-10-31] MEDS ORDERED: NA CHLORIDE 0.9% 500 ML IV ONE (22:45)
[2021-10-31] MEDS ORDERED: OCTREOTIDE ACETATE 100 MCG/ML ONE (22:59)
[2021-10-31] MEDS ORDERED: PANTOPRAZOLE 40 MG INJ ONE (22:59)
[2021-10-31] MEDS ORDERED: NA CHLORIDE 0.9% 250 ML ONE (22:59)
[2021-10-31] MEDS ORDERED: NA CHLORIDE 0.9% 250 ML IV SCH (23:00)
[2021-10-31] MEDS ORDERED: OCTREOTIDE IV SCH (23:00)
[2021-10-31] MEDS ORDERED: NA CHLORIDE 0.9% IV SCH (23:00)
[2021-10-31] MEDS ORDERED: PANTOPRAZOLE INJ 80 MG in NA CHLORIDE 0.9% 250 ML IV SCH (23:00)
[2021-10-31 23:39] LABS: Absolute Lymphocytes (CBC) 0.6 K/uL (0.7-4.9); Basophils % 0.4 % (0-1.3); Hematocrit 35.3 % (39.6-49.0); Lymphocytes % 8.2 % (15.3-44.8); MPV 7.4 fL (7.6-11.3); RBC Red Blood Cell Count 3.52 M/uL (4.33-5.43)
[2021-10-31 23:43] LABS: Protime INR 1.03
[2021-10-31] MEDS ORDERED: NA CHLORIDE 0.9% 500 ML ONE (23:48)
[2021-10-31 23:54] LABS: Albumin 1.9 g/dL (3.4-5.0); Bilirubin Total 0.3 mg/dL (0.2-1.0); Potassium 4.1 mmol/L (3.5-5.1); Protein, Total 5.5 g/dL (6.4-8.2)
[2021-11-01] MEDS ORDERED: NOREPINEPHRINE 4 MG in D5W 250 ML IV SCH ×2
[2021-11-01] MEDS ORDERED: ALBUMIN HUMAN 25% 100 ML IV ONE (00:01)
[2021-11-01] MEDS ORDERED: ALBUMIN HUMAN 25% 50 ML IV ONE (00:13)
[2021-11-01] MEDS ORDERED: NA CHLORIDE 0.9% 500 ML ONE ×2 (00:28→00:52)
[2021-11-01] MEDS ORDERED: NA CHLORIDE 0.9% 150 ML ONE (00:53)
--- NOTE | 2021-11-01 02:15 | P.DS ---
Admission Date: 10/31/21 Discharge Date: 11/01/21 Disposition: TRANSFER TO [facility] Discharge Condition: CRITICAL Reason for Admission: UGIB, LGIB Procedures: central line placed Brief History of Present Illness: Mr. German 70 yo cachetic M who presents with DM, ESRD on HD MWF, pancreatic ca s/p whipple (remission), prostate ca (remission) who presents with hypoglycemia and weakness. He has been declining at home alone, not eating or drinking, and on glimepiride. BG in the ED was 20. He received an amp of glucose, then started to drink some jesenia gonzalo. He called his nurse because he had to vomit. He had an episode of hematochezia, approximately 200cc. He says at home he has had episodes of melena for the past week. He says he has been vomiting for 4 days. He is not on any anticoagulation, unknown if he has been taking NSAIDs at home. Denies alcohol use, denies history of liver cirrhosis. He is being seen by oncology for rapid weight loss, note states his pancreatic and prostate cancer are still in remission. Possible gastric adenocarcinoma seen on EGD but no definitive diagnosis made at that time. Normally, he lives at home with his and son. His is currently admitted in order to coordinate hospice care. His son is currently admitted to rehab after a MVA. H/H 12.6 Na 133 K 4.5 Cl 96 HCO3 29 BUN 34 Cr 4.89 GFR 12. Hospital Course: Patient vomited another 100cc of blood, continues to vomit blood. BP 77/53, HR 93. Central line was placed. Initiated protonix drip and octreotide drip. Gave 500cc bolus of fluid. Received 25g of 25% albumin. Started transfusion for 2 units of pRBCs and 2 units of FFP. Multiple attempts were made to contact on- call GI physician with no success. Initiated transfer with [facility] and received acceptance from Dr. Kemp (GI) and Dr. Lanza (Furniture Rental Consultant). BP stabilized, patient's sats 95% on RA. Patient transferred to [facility] by EMS. [facility] unavailable due to weather conditions. General: Alert, Cachectic HEENT: Atraumatic, Normocephalic, PERRLA, Mucous membr. moist/pink, EOMI, Sclerae nonicteric Neck: Supple, 2+ carotid pulse no bruit, JVD not distended, No Thyromegaly, No LAD Respiratory: Clear to auscultation bilaterally, Normal air movement Cardiovascular: No edema, Regular rate/rhythm, Normal S1 S2 Gastrointestinal: Normal bowel sounds, Soft and benign, Non-distended Musculoskeletal: No clubbing Integumentary: No rashes, Cyanosis Neurological: Normal speech, Sensation intact, Normal affect Lymphatics: No axilla or inguinal lymphadenopathy Other Physical/Emotional Findings: continuing to vomit and spit up bright red blood Laboratory Data at Discharge: WBC 7.10 K/uL (4.3-10.9) D 10/31/21 23:20 Hgb 11.4 g/dL (13.6-17.9) L 10/31/21 23:20 Hct 35.3 % (39.6-49.0) L 10/31/21 23:20 Plt Count 265 K/uL (152-406) 10/31/21 23:20 PT 11.8 SECONDS (9.5-12.5) 10/31/21 23:20 INR 1.03 10/31/21 23:20 APTT 33.0 SECONDS (24.3-36.9) 10/31/21 23:20 Sodium 134 mmol/L (136-145) L 10/31/21 23:20 Potassium 4.1 mmol/L (3.5-5.1) 10/31/21 23:20 BUN 36 mg/dL (7-18) H 10/31/21 23:20 Creatinine 4.96 mg/dL (0.55-1.3) H 10/31/21 23:20 Glucose 113 mg/dL (74-106) H 10/31/21 23:20 Magnesium 2.6 mg/dL (1.8-2.4) H 10/31/21 15:51 Total Bilirubin 0.3 mg/dL (0.2-1.0) 10/31/21 23:20 AST 15 U/L (15-37) 10/31/21 23:20 ALT 17 U/L (12-78) 10/31/21 23:20 Alkaline Phosphatase 147 U/L (45-117) H 10/31/21 23:20 Home Medications: Allopurinol 100 mg PO DAILY 06/17/20 Ascorbic Acid [Vitamin C] 1,000 mg PO DAILY 06/17/20 Atorvastatin Calcium [Lipitor*] 10 mg PO BEDTIME 06/17/20 Cholecalciferol (Vitamin D3) [Vitamin D3] 1,000 unit PO DAILY 06/17/20 Cyanocobalamin (Vitamin B-12) [Vitamin B-12] 1,000 mcg PO DAILY 06/17/20 Docusate [Colace Cap*] 100 mg PO DAILY 06/17/20 Glimepiride [Amaryl*] 2 mg PO DAILY 06/17/20 Pantoprazole [Protonix Tab] 40 mg PO DAILY 06/17/20 Sevelamer Carbonate [Renvela*] 4 tab PO TIDWM 06/17/20 Topiramate [Topamax] 200 mg PO DAILY 06/17/20 Tramadol HCl [Ultram] 50 mg PO Q4H PRN 06/17/20 Zolpidem Tartrate [Ambien] 10 mg PO BEDTIME 06/17/20 calcitrioL [Rocaltrol] 0.25 mcg PO DAILY 06/17/20 Gabapentin 100 mg PO BID #60 capsule 06/19/20 Midodrine HCl [Proamatine*] 5 mg PO TID* #90 tab 06/19/20 Followup: NONE,NONE [Primary Care Provider] -
[2021-11-01] MEDS ORDERED: PROMETHAZINE INJ 25 MG/ML AMP ONE (02:48)
[2021-11-01 03:44] VITALS: BP 64/52; TEMP 97.4
[2021-11-01 04:22] VITALS: O2SAT 98
[2021-11-01] MEDS ORDERED: PANTOPRAZOLE 40 MG INJ IVP SCH (09:00)
== END 2021-11-01 04:10 | disposition short-term general hospital (02) | DRG 638 ==
LOC: ER 11:40 → ERHOLD 18:03
PROVIDERS: ADMIT Hospitalist; ATTEND Hospitalist
PROC: 06HY33Z Insertion of Infusion Device into Lower Vein, Percutaneous Approach (ICD-10-PCS; 2021-10-31)
PROC: 30233L1 Transfusion of Nonautologous Fresh Plasma into Peripheral Vein, Percutaneous Approach (ICD-10-PCS; principal; 2021-11-01)
PROC: 30233N1 Transfusion of Nonautologous Red Blood Cells into Peripheral Vein, Percutaneous Approach (ICD-10-PCS; 2021-11-01)
DX: E11.649 Type 2 diabetes mellitus with hypoglycemia without coma (principal); R64 Cachexia; N18.6 End stage renal disease; E11.22 Type 2 diabetes mellitus with diabetic chronic kidney disease; T38.3X5A Adverse effect of insulin and oral hypoglycemic [antidiabetic] drugs, initial encounter; Z68.25 Body mass index [BMI] 25.0-25.9, adult; Z79.84 Long term (current) use of oral hypoglycemic drugs; Z79.899 Other long term (current) drug therapy; Z85.46 Personal history of malignant neoplasm of prostate; Z85.07 Personal history of malignant neoplasm of pancreas; Z99.2 Dependence on renal dialysis; Z20.822 Contact with and (suspected) exposure to COVID-19
CPT/HCPCS: 36415; 71045; 80048; 80053; 80076; 82947; 83735; 83880; 84484; 85025; 85610; 85730; 86850; 86900; 86901; 86927; 96374; 99285; C9113; J2354; J2550; J7030; J7040; J7050; P9016; P9017; P9047; P9059; U0003